=== PATIENT | male | born 1990 | race Two or more races ===

== ENCOUNTER 2024-11-16 23:17 | Emergency (ER) | payer MEDICAID, OTHER ==
[~2024-11-16] VITALS: Ht 160 cm; Wt 98.1 kg
[2024-11-16 23:57] LABS: Hematocrit 44.5 % (41.0-53.0); Hemoglobin 15.2 g/dL (13.5-17.5); Mean Corpuscular Hemoglobin 31.1 pg (28.0-32.0); Mean Corpuscular Volume 91.1 fL (80.0-100.0); Nucleated Red Blood Cells % 0.3 %
[2024-11-17 00:07] LABS: Chloride 107 mmol/L (98-107); Potassium 3.8 mmol/L (3.5-5.1); Sodium 140 mmol/L (136-145)
[2024-11-17 00:08] LABS: Anion Gap 11 (5-15); Carbon Dioxide 22 mmol/L (20-31)
[2024-11-17 00:09] LABS: Calcium 8.9 mg/dL (8.7-10.4)
[2024-11-17 00:13] LABS: Glucose 105 mg/dL (74-106)
[2024-11-17 00:14] LABS: BUN/Creatinine Ratio 15.5 (10.0-20.0); Blood Urea Nitrogen 17 mg/dL (9-23)
--- NOTE | 2024-11-17 00:35 | ED.PDOC ---
HPI Comments This is a 34-year-old male, with a past medical history of HTN, high lipids, chronic back pain, and asthma, who presents to the ED with a chief complaint of substernal chest pain with associated back pain as of months ago. Patient states the chest pain is spontaneous, intermittent, a "shooting" pain, and radiating to the right side of his chest. Patient additionally states chest pain is exacerbated when walking fast. Patient reports recent exposure to illness. Patient states he was admitted before for the same complaint. Patient has no further complaints at this time and otherwise denies N/V/D, fever, chills, cough, SOB, or dizziness. REVIEW OF SYSTEMS: No fever, no chills, or fatigue HEENT: No sore throat, no earache, no congestion, no neck pain. Cardiac: (+) chest pain. No palpitations. Lungs: No shortness of breath, no cough. GI: No nausea, no vomiting, no diarrhea, no constipation, no abdominal pain : No dysuria, frequency, or urgency. No hematuria. Musculoskeletal: (+) Back Pain. No joint pain , no joint swelling, no extremity edema. Skin: No rash, no itching. Neuro: No headache, no dizziness, no weakness EXAM: General: Awake, alert and oriented. No acute distress. Skin: Skin in warm, dry and intact. Appropriate color for ethnicity. HEENT: The head is normocephalic and atraumatic. Conjunctivae are clear without exudates or hemorrhage. Sclera is non-icteric. EOM are intact. No signs of nystagmus. Eyelids are normal in appearance without swelling or lesions. Oral mucosa is pink and moist Neck: The neck is supple with normal range of motion. No JVD. Cardiac: Heart rate and rhythm are normal. No murmurs, gallops, or rubs are auscultated. Respiratory: No signs of respiratory distress. Lung sounds are clear in all lobes bilaterally without rales, rhonchi, or wheezes. Abdominal: Abdomen is soft, non-tender without distention. Bowel sounds are present and normoactive in all four quadrants. Extremities: Upper and lower extremities are atraumatic in appearance without deformity or edema. Neurological: The patient is awake, alert and oriented to person, place, and time with normal speech. Speech is clear. There is no facial asymmetry. Psychiatric: Appropriate mood and affect. Good judgement and insight. Chief Complaint: Chest Pain Time Seen by MD: 00:05 Primary Care Provider: Clara Awad Notes: Medications, Allergies Allergies: Coded Allergies: Cyclobenzaprine (Verified Allergy, Unknown, 11/16/24) Ibuprofen (Verified Allergy, Unknown, 11/16/24) Ketorolac Tromethamine (Verified Allergy, Unknown, 11/16/24) Tramadol (Verified Allergy, Unknown, 11/16/24) Information Source: Patient Mode of Arrival: Ambulatory Severity: Moderate Timing: Months Duration: Since onset Location: Substernal Radiation: Other (Radiation to R side ) Onset: At Rest, With Light Exertion, With Heavy Exertion Associated Signs and Symptoms: Other (Chest Pain, Back Pain ) Past Medical History PAST MEDICAL HISTORY: Asthma, High Lipids, HTN Past Medical History (Other): Chronic Back Pain Surgical History: Denies all surgeries Family History Family History: Reviewed,noncontributory to illness Social History Smoker: Cigarettes, Less Than 1 Pack/Day Alcohol: Occasionally Drugs: Marijuana Lives In: Home EKG EKG : Pulse Rate (adult): 110 [place]: Normal Cardiac Rhythm: ST Block: None Hypertrophy: LAE ST: Normal Was a procedure done? Was a procedure done?: No CP Differential Dx Differential Diagnosis: A-fib, Anxiety / Panic Attack Differential Diagnosis: HTN Essential Differential Diagnosis: Chest Wall Pain, Gastritis X-Ray, Labs, Meds, VS Vital Signs Date Time Temp Pulse Resp B/P (MAP) Pulse Ox O2 Delivery O2 Flow Rate FiO2 11/17/24 04:23 92 16 93 Room Air 11/17/24 04:23 98.0 92 16 111/65 (80) 93 98.0 11/17/24 00:38 110 11/16/24 23:22 110 11/16/24 23:19 98.1 114 16 92/61 94 98.1 Lab Test 11/17/24 02:39 11/17/24 00:48 11/16/24 23:30 Range/Units Troponin I High Sensitivity < 3 L < 3 L < 3 L </=54 ng/L White Blood Count 6.5 4.4-10.8 10^3/uL Red Blood Count 4.89 4.5-5.90 10^6/uL Hemoglobin 15.2 13.5-17.5 g/dL Hematocrit 44.5 41.0-53.0 % Mean Corpuscular Volume 91.1 80.0-100.0 fL Mean Corpuscular Hemoglobin 31.1 28.0-32.0 pg Mean Corpuscular Hemoglobin Concent 34.2 32.0-36.0 g/dL Red Cell Distribution Width 12.9 11.8-14.3 % Platelet Count 214 140-450 10^3/uL Mean Platelet Volume 8.7 6.9-10.8 fL Neutrophils (%) (Auto) 28.8 L 37.0-80.0 % Lymphocytes (%) (Auto) 57.4 H 10.0-50.0 % Monocytes (%) (Auto) 8.9 0.0-12.0 % Eosinophils (%) (Auto) 4.2 0.0-7.0 % Basophils (%) (Auto) 0.7 0.0-2.0 % Neutrophils # (Auto) 1.9 1.6-8.6 10 ^3/uL Lymphocytes # (Auto) 3.7 0.4-5.4 10 ^3/uL Monocytes # (Auto) 0.6 0-1.3 10 ^3/uL Eosinophils # (Auto) 0.3 0-0.8 10 ^3/uL Basophils # (Auto) 0 0-0.2 10 ^3/uL Nucleated Red Blood Cells 0.3 % Sodium Level 140 136-145 mmol/L Potassium Level 3.8 3.5-5.1 mmol/L Chloride Level 107 98-107 mmol/L Carbon Dioxide Level 22 20-31 mmol/L Anion Gap 11 5-15 Blood Urea Nitrogen 17 9-23 mg/dL Creatinine 1.10 0.700-1.30 mg/dL Glomerular Filtration Rate Calc 90 >90 mL/min BUN/Creatinine Ratio 15.5 10.0-20.0 Serum Glucose 105 74-106 mg/dL Calcium Level 8.9 8.7-10.4 mg/dL B-Type Natriuretic Peptide 0.87 0-100 pg/mL [facility] [id number] [place] [id number] Ph: [phone] DIAGNOSTIC IMAGING Diagnostic Imaging Report : [id number] Signed PATIENT: SHELLY RAMIRES ACCT: [id number] UNIT: [id number] : 1990 LOC: ER ROOM / BED: / AGE / SEX: 34 / M ADM STATUS: REG ER SERVICE [id number] ORDERING PHYSICIAN: JUWAN LEW MD PROCEDURE(s): CXR1 - CHEST XRAY 1 VIEW REASON: cp ORDER NUMBER(s): [id number], ACCESSION NUMBER(s): [id number] EXAM: XY CHEST XRAY 1 VIEW CLINICAL HISTORY: cp TECHNIQUE: Single AP view of the chest WID: COMPARISON: None FINDINGS: Lines and tubes: None Chest: The heart size and pulmonary vasculature is within normal limits. No pleural effusion, pneumothorax, or consolidation. The osseous structures are grossly intact. IMPRESSION: No acute cardiopulmonary abnormality. X-Ray, Labs, Meds, VS Comment Chest x-ray independent interpretation:-no acute disease Time of 1ST Reevaluation: 01:00 Reevaluation 1ST: Unchanged Patient Education/Counseling: Need For Follow Up Family Education/Counseling: No Family Present SEPSIS Sepsis Screen Date sepsis recognized/suspect: Nov 16, 2024 Time Sepsis recognized/suspect: 2328 Recent Procedure: No On Antibiotic Therapy: No Respiratory Rate >20: No Heart Rate >90: No Temp<36 C (96.8 F) or >38.3 C: No SBP <90 or MAP <65 mmHG: No New Acute Mental Status Change: No Is the patient on CPAP, BIPAP,: No Physician Orders Electrocardigram (11/17/24 00:26) Electrocardigram (11/17/24 02:26) Urinalysis (11/16/24 23:29) Chest Xray 1 View (11/16/24 23:36) Vital Signs Date Time Temp Pulse Resp B/P (MAP) Pulse Ox O2 Delivery O2 Flow Rate FiO2 11/17/24 04:23 92 16 93 Room Air 11/17/24 04:23 98.0 92 16 111/65 (80) 93 98.0 11/17/24 00:38 110 11/16/24 23:22 110 11/16/24 23:19 98.1 114 16 92/61 94 98.1 Laboratory Tests Test 11/16/24 23:30 White Blood Count 6.5 10^3/uL (4.4-10.8) Departure 1 Departure Time of Disposition: 01:34 Impression: Primary Impression: Chest pain Disposition: 01 HOME / SELF CARE / HOMELESS Condition: Stable Additional Instructions: ED DISCHARGE INSTRUCTIONS Instructions: Please read all instructions provided in this packet carefully. Although you have been discharged from the Emergency Department, this does not mean that you have a "clean bill of health". No definitive diagnosis for your symptoms has been made today. It is possible that you are in the process of developing a serious illness. This is why you must return to the ED without fail if any new or worsening symptoms (especially if your symptoms include chest pain, trouble breathing, abdominal pain, fever, headache, confusion, trouble seeing, or trouble walking) It is also very important that you see a primary care provider (PCP) within the next 1-3 days to follow up. If you are unable to get an appointment, return to the ED for re-evaluation. CHEST PAIN EDUCATION There are many things that can cause chest pain. Some are not serious and will get better on their own in a few days. But some kinds of chest pain need more testing and treatment. Your doctor may have recommended a follow-up visit in the next few days. If you are not getting better, you may need more tests or treatment. Even though your doctor has released you, you still need to watch for any problems. The doctor carefully checked you, but sometimes problems can develop later. If you have new symptoms or if your symptoms do not get better, get medical care right away. If you have worse or different chest pain or pressure that lasts more than 5 minutes or you passed out (lost consciousness), call 911 or seek other emergency help right away. A medical visit is only one step in your treatment. Even if you feel better, you still need to do what your doctor recommends, such as going to all suggested follow-up appointments and taking medicines exactly as directed. This will help you recover and help prevent future problems. How can you care for yourself at home? Rest until you feel better. Take your medicine exactly as prescribed. Call your doctor if you think you are having a problem with your medicine. Do not drive after taking a prescription pain medicine. When should you call for help? Call 911 if: You passed out (lost consciousness). You have severe difficulty breathing. You have symptoms of a heart attack. These may include: Chest pain or pressure, or a strange feeling in your chest. Sweating. Shortness of breath. Nausea or vomiting. Pain, pressure, or a strange feeling in your back, neck, jaw, or upper belly or in one or both shoulders or arms. Lightheadedness or sudden weakness. A fast or irregular heartbeat. After you call 911, the sensor operator may tell you to chew 1 adult-strength or 2 to 4 low-dose aspirin. Wait for an ambulance. Do not try to drive yourself. Call your doctor now or seek immediate medical care if: You have any trouble breathing. You have new or different chest pain. You are dizzy or lightheaded, or you feel like you may faint. Watch closely for changes in your health, and be sure to contact your doctor if you do not get better as expected. Current as of: November 06, 2023 Author: [employer] Staff? Comments MDM: 34-year-old male with 2 days of chest pain. EKG negative for signs of ischemia. High sensitivity troponin negative. CXR shows no acute process. Presentation not suggestive of acute coronary syndrome, pulmonary embolism or aortic dissection. Patient improved at time of discharge. Patient has not been hypoxic, in respiratory distress or dyspneic during the ED observation. Patient able to ambulate without difficulty. Patient felt stable for discharge to follow up with PCP promptly. Patient advised to return to the ED with any new, worsening or concerning symptoms or inability to follow up with PCP. -------- I reviewed the following notes from the pt's past medical encounters: N/A The following tests were ordered, and results were reviewed by me: (See diagnostic results section) The following test were independently interpreted by me: EKG, chest x-ray Additional information was gathered from interviewing the following independent historians: N/A I reviewed and agreed with the following test results read by other providers: Chest x-ray I discussed treatments and results with patient Decision regarding hospitalization or escalation of hospital level of care: Risks and benefits of admission for further treatment of patient's condition was considered however due to patient's stable condition patient will be discharged to follow up closely or return to care for worsening of condition or inability to follow up. Critical Care Note Critical Care Time?: No Stability Stability form required: No Heart Score Heart Score: Heart Score Response (Comments) Value History Moderate Suspicious 1 EKG Normal 0 Age <45 0 Risk Factors No known risk factors 0 Troponin N/A 0 Total 1 I personally scribed for JUWAN LEW MD ([email or web address]) on 11/17/24 at 00:35. Electronically submitted by Maggie Rowe (Otterology). I personally scribed for JUWAN LEW MD ([email or web address]) on 11/17/24 at 00:38. Electronically submitted by Maggie Rowe (Otterology). I personally scribed for JUWAN LEW MD ([email or web address]) on 11/17/24 at 01:18. Electronically submitted by Maggie Rowe (Otterology). JUWAN LEW MD Nov 17, 2024 00:35
--- NOTE | 2024-11-17 00:50 | DVH ---
EXAM: XY CHEST XRAY 1 VIEW CLINICAL HISTORY: cp TECHNIQUE: Single AP view of the chest WID: COMPARISON: None FINDINGS: Lines and tubes: None Chest: The heart size and pulmonary vasculature is within normal limits. No pleural effusion, pneumothorax, or consolidation. The osseous structures are grossly intact. IMPRESSION: No acute cardiopulmonary abnormality.
[2024-11-17 04:23] VITALS: BP 111/65; PULSE 92; RESP 16; TEMP 98; O2SAT 93
--- NOTE | 2024-11-17 06:49 | ECG ---
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
== END 2024-11-17 04:23 | disposition home or self-care (01) ==
LOC: ER 23:17
DX: R07.89 Other chest pain (principal); J45.909 Unspecified asthma, uncomplicated; I10 Essential (primary) hypertension; F17.210 Nicotine dependence, cigarettes, uncomplicated; Z88.6 Allergy status to analgesic agent; Z88.5 Allergy status to narcotic agent; Z79.899 Other long term (current) drug therapy
CPT/HCPCS: 36415; 71045; 80048; 83880; 84484; 85025; 93005

== ENCOUNTER 2024-11-24 00:47 | Emergency (ER) | payer MEDICAID ==
[~2024-11-24] VITALS: Ht 157.5 cm; Wt 76.9 kg
--- NOTE | 2024-11-24 01:08 | ECG ---
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
--- NOTE | 2024-11-24 01:49 | ED.PDOC ---
HPI Comments This is a 34-year-old male, with a past medical history of HTN, high lipids, chronic back pain, bipolar disorder, and asthma, who presents to the ED with a chief complaint of substernal chest pain. Patient states he was admitted before for the same complaint. Patient has no further complaints at this time and otherwise denies N/V/D, fever, chills, cough, SOB, or dizziness. Chief Complaint: Chest Pain Time Seen by MD: 01:00 Reviewed Notes: Nurses Notes, Medications, Allergies Allergies: Coded Allergies: Cyclobenzaprine (Verified Allergy, Unknown, 11/16/24) Ibuprofen (Verified Allergy, Unknown, 11/16/24) Ketorolac Tromethamine (Verified Allergy, Unknown, 11/16/24) Tramadol (Verified Allergy, Unknown, 11/16/24) Information Source: Patient Mode of Arrival: Ambulatory Severity: Moderate Timing: Hours Duration: Since onset Prehospital treatment: None Location: Substernal Radiation: No Radiation Past Medical History PAST MEDICAL HISTORY: Asthma, High Lipids, HTN Past Medical History (Other): chronic back pain bipolar disorder Surgical History: Denies all surgeries Family History Family History: Unknown Social History Smoker: Non-Smoker Alcohol: Denies ETOH Use Drugs: Denies Drug Use Lives In: Home All Other Systems: Reviewed and Negative (Comprehensive systems review obtained and negative except for what is stated in the HPI.) Physical Exam General Appearance: No Apparent Distress, Obese HEENT: Normal ENT Inspection, Pharynx Normal, TMs Normal Neck: Full Range of Motion, Non-Tender, Normal, Normal Inspection Respiratory: Chest Non-Tender, Lungs Clear, No Accessory Muscle Use, No Respiratory Distress, Normal Breath Sounds Cardiovascular: No Edema, No JVD, No Murmur, No Gallop, Normal Peripheral Pulses, Regular Rate/Rhythm Breast Exam: Deferred Gastrointestinal: No Organomegaly, Non Tender, No Pulsatile Mass, Normal Bowel Sounds, Soft Genitalia: Deferred Pelvic: Deferred Rectal: Deferred Extremities: No calf tenderness, Normal capillary refill, Normal inspection, Normal range of motion, Non-tender, No pedal edema Musculoskeletal : Apperance: Normal Neurologic: Alert, 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 Was a procedure done?: No CP Differential Dx Differential Diagnosis: N/A Differential Diagnosis: N/A Differential Diagnosis: Angina, Chest Wall Pain, Cholelithiasis, Costochondritis, Esophageal reflux/spasm, Gastritis, Myocardial Infarction, Pericarditis, Pneumonia, Pulmonary Embolus X-Ray, Labs, Meds, VS Vital Signs Date Time Temp Pulse Resp B/P (MAP) Pulse Ox O2 Delivery O2 Flow Rate FiO2 11/24/24 04:02 97.9 100 18 117/72 (87) 95 97.9 11/24/24 04:02 100 18 95 Room Air 11/24/24 01:49 97 11/24/24 00:55 97 11/24/24 00:48 97.9 99 18 131/97 98 97.9 Lab Test 11/24/24 02:00 11/24/24 01:06 Range/Units Troponin I High Sensitivity 4 5 </=54 ng/L White Blood Count 6.2 4.4-10.8 10^3/uL Red Blood Count 4.68 4.5-5.90 10^6/uL Hemoglobin 14.7 13.5-17.5 g/dL Hematocrit 42.9 41.0-53.0 % Mean Corpuscular Volume 91.8 80.0-100.0 fL Mean Corpuscular Hemoglobin 31.4 28.0-32.0 pg Mean Corpuscular Hemoglobin Concent 34.2 32.0-36.0 g/dL Red Cell Distribution Width 12.9 11.8-14.3 % Platelet Count 185 140-450 10^3/uL Mean Platelet Volume 8.7 6.9-10.8 fL Neutrophils (%) (Auto) 35.8 L 37.0-80.0 % Lymphocytes (%) (Auto) 46.4 10.0-50.0 % Monocytes (%) (Auto) 12.9 H 0.0-12.0 % Eosinophils (%) (Auto) 4.0 0.0-7.0 % Basophils (%) (Auto) 0.9 0.0-2.0 % Neutrophils # (Auto) 2.2 1.6-8.6 10 ^3/uL Lymphocytes # (Auto) 2.9 0.4-5.4 10 ^3/uL Monocytes # (Auto) 0.8 0-1.3 10 ^3/uL Eosinophils # (Auto) 0.2 0-0.8 10 ^3/uL Basophils # (Auto) 0.1 0-0.2 10 ^3/uL Nucleated Red Blood Cells 0.1 % Sodium Level 139 136-145 mmol/L Potassium Level 3.9 3.5-5.1 mmol/L Chloride Level 104 98-107 mmol/L Carbon Dioxide Level 25 20-31 mmol/L Anion Gap 10 5-15 Blood Urea Nitrogen 16 9-23 mg/dL Creatinine 1.03 0.700-1.30 mg/dL Glomerular Filtration Rate Calc 97 >90 mL/min BUN/Creatinine Ratio 15.5 10.0-20.0 Serum Glucose 105 74-106 mg/dL Calcium Level 9.3 8.7-10.4 mg/dL [place] [address] Ph: [phone] DIAGNOSTIC IMAGING Diagnostic Imaging Report : [id number] Signed PATIENT: SHELLY RAMIRES ACCT: [id number] UNIT: [id number] : 1990 LOC: ER ROOM / BED: / AGE / SEX: 34 / M ADM STATUS: REG ER SERVICE 0 ORDERING PHYSICIAN: MARIANA LEMON MD PROCEDURE(s): CXR1 - CHEST XRAY 1 VIEW REASON: chest pain ORDER NUMBER(s): [id number], ACCESSION NUMBER(s): [id number] CHEST RADIOGRAPH Indication: chest pain Technique: Single frontal view of the chest was obtained Comparison: XY CHEST XRAY 1 VIEW on DOS: 11/17/24 FINDINGS: Lines and Tubes: None Lungs: Question left lower lobe opacity may reflect atelectasis versus early stage of pneumonia. Pleura: No effusion. No pneumothorax. Cardiomediastinal contours: Unremarkable Bones: No acute osseous abnormality. IMPRESSION: 1. Question left lower lobe opacity may reflect atelectasis versus early stage of pneumonia. ATED BY: RONNIE THOMAS MD DICTATED DATE/TIME: 11/24/24154 SIGNED BY: RONNIE THOMAS MD SIGNED DATE/TIME: 11/24/24154 CC: Time of 1ST Reevaluation: 01:30 Reevaluation 1ST: Unchanged Patient Education/Counseling: Diagnosis, Treatment, Need For Follow Up Family Education/Counseling: No Family Present SEPSIS Sepsis Screen Date sepsis recognized/suspect: Nov 24, 2024 Time Sepsis recognized/suspect: 0048 Recent Procedure: No On Antibiotic Therapy: No Respiratory Rate >20: No Heart Rate >90: No Temp<36 C (96.8 F) or >38.3 C: No SBP <90 or MAP <65 mmHG: No New Acute Mental Status Change: No Is the patient on CPAP, BIPAP,: No Physician Orders Urinalysis (11/24/24 01:06) Chest Xray 1 View (11/24/24 01:11) Vital Signs Date Time Temp Pulse Resp B/P (MAP) Pulse Ox O2 Delivery O2 Flow Rate FiO2 11/24/24 04:02 97.9 100 18 117/72 (87) 95 97.9 11/24/24 04:02 100 18 95 Room Air 11/24/24 01:49 97 11/24/24 00:55 97 11/24/24 00:48 97.9 99 18 131/97 98 97.9 Laboratory Tests Test 11/24/24 01:06 White Blood Count 6.2 10^3/uL (4.4-10.8) Departure 1 Departure Time of Disposition: 03:30 Impression: Primary Impression: Atypical chest pain Disposition: 01 HOME / SELF CARE / HOMELESS Condition: Stable Discharged With: Self Critical Care Note Critical Care Time?: No Stability Stability form required: No Heart Score Heart Score: Heart Score Response (Comments) Value History Slightly Suspicious 0 EKG Normal 0 Age <45 0 Risk Factors 1 or 2 risk factors 1 Troponin Normal limit 0 Total 1 I personally scribed for MARIANA LEMON MD ([email or web address]) on 11/24/24 at 01:49. Electronically submitted by Rashawn Garcia ([email or web address]). I personally scribed for MARIANA LEMON MD ([email or web address]) on 11/24/24 at 02:16. Electronically submitted by Rashawn Garcia ([email or web address]). MARIANA LEMON MD Nov 24, 2024 01:49
[2024-11-24 01:51] LABS: Hematocrit 42.9 % (41.0-53.0); Hemoglobin 14.7 g/dL (13.5-17.5); Mean Corpuscular Hemoglobin 31.4 pg (28.0-32.0); Mean Corpuscular Volume 91.8 fL (80.0-100.0); Nucleated Red Blood Cells % 0.1 %
[2024-11-24 01:52] LABS: Chloride 104 mmol/L (98-107); Potassium 3.9 mmol/L (3.5-5.1); Sodium 139 mmol/L (136-145)
[2024-11-24 01:53] LABS: Anion Gap 10 (5-15); Calcium 9.3 mg/dL (8.7-10.4); Carbon Dioxide 25 mmol/L (20-31)
--- NOTE | 2024-11-24 01:57 | DVH ---
CHEST RADIOGRAPH Indication: chest pain Technique: Single frontal view of the chest was obtained Comparison: XY CHEST XRAY 1 VIEW on DOS: 11/17/24 FINDINGS: Lines and Tubes: None Lungs: Question left lower lobe opacity may reflect atelectasis versus early stage of pneumonia. Pleura: No effusion. No pneumothorax. Cardiomediastinal contours: Unremarkable Bones: No acute osseous abnormality. IMPRESSION: 1. Question left lower lobe opacity may reflect atelectasis versus early stage of pneumonia.
[2024-11-24 01:58] LABS: BUN/Creatinine Ratio 15.5 (10.0-20.0); Blood Urea Nitrogen 16 mg/dL (9-23); Glucose 105 mg/dL (74-106)
[2024-11-24 04:02] VITALS: BP 117/72; PULSE 100; RESP 18; TEMP 97.9; O2SAT 95
== END 2024-11-24 04:03 | disposition home or self-care (01) ==
LOC: ER 00:47
DX: R07.89 Other chest pain (principal); I10 Essential (primary) hypertension; J45.909 Unspecified asthma, uncomplicated; Z88.6 Allergy status to analgesic agent; Z88.5 Allergy status to narcotic agent
CPT/HCPCS: 36415; 71045; 80048; 84484; 85025; 93005

== ENCOUNTER 2024-12-24 21:16 | Emergency (ER) | payer MEDICAID ==
[~2024-12-24] VITALS: Ht 160 cm; Wt 77.3 kg
--- NOTE | 2024-12-24 22:39 | ED.PDOC ---
History of Present Illness HPI Comments 34-year-old male who came to ER for hip pain. Patient discharged your last December 20 and was diagnosed with 1. Chest pain, 2. Polysubstance use disorder including alcohol/marijuana/tobacco, 3. Hypertensive heart disease, 4. Bipolar disorder with depression; no suicidal ideation/plan, 5. Dyslipidemia, 6. Overweight, 7. Homelessness. Patient's claims ever since he got discharged, he has been having lower back pains and bilateral hip pain causing him difficulty ambulating. Patient is a very poor informant REVIEW OF SYSTEMS: General: No fever, no chills, or fatigue HEENT: No sore throat, no earache, no congestion, no neck pain. Cardiac: No chest pain. No palpitations. Lungs: No shortness of breath, no cough. GI: No nausea, no vomiting, no diarrhea, no constipation, no abdominal pain : No dysuria, frequency, or urgency. No hematuria. Musculoskeletal: No joint pain , no joint swelling, no extremity edema. (+) bilateral hip pain Skin: No rash, no itching. Neuro: No headache, no dizziness, no weakness PHYSICAL EXAM: General: Awake, alert and oriented. No acute distress. Skin: Skin in warm, dry and intact without rashes or lesions. HEENT: The head is normocephalic and atraumatic. Conjunctivae are clear without exudates or hemorrhage. Sclera is non-icteric. Neck: Normal range of motion. No JVD. Cardiac: Regular rate Respiratory: No signs of respiratory distress. No Stridor. Extremities: Bilateral hip and pelvis tenderness Neurological: The patient is awake, alert and oriented to person, place, and time with normal speech. Speech is clear. There is no facial asymmetry. Patient is able to go from sitting to standing without difficulty. Psychiatric: Appropriate mood and affect. Good judgement and insight. Chief Complaint: Lower Extremity Time Seen by MD: 22:39 Reviewed Notes: Nurses Notes Allergies: Coded Allergies: Cyclobenzaprine (Verified Allergy, Unknown, 11/16/24) Ibuprofen (Verified Allergy, Unknown, 11/16/24) Ketorolac Tromethamine (Verified Allergy, Unknown, 11/16/24) Tramadol (Verified Allergy, Unknown, 11/16/24) Home Meds Active Scripts Acetaminophen (Acetaminophen Er) 650 Mg Tab, 650 MG PO TIDPRN PRN, #15 TAB Prov:JUWAN LEW MD 12/25/24 Information Source: Patient Mode of Arrival: Ambulatory Severity: Moderate Timing: Hours Duration: Since onset Past Medical History PAST MEDICAL HISTORY: Asthma, High Lipids, HTN Past Medical History (Other): Bipolar disorder Surgical History: Denies all surgeries Family History Family History: Reviewed,noncontributory to illness Social History Smoker: Non-Smoker Alcohol: Denies ETOH Use Drugs: Denies Drug Use Lives In: Homeless Was a procedure done? Was a procedure done?: No Differential Dx Considerations may include: Musculoskeletal pain, lumbosacral strain, hip pain X-Ray, Labs, Meds, VS Vital Signs Date Time Temp Pulse Resp B/P (MAP) Pulse Ox O2 Delivery O2 Flow Rate FiO2 12/25/24 01:06 98.6 12/25/24 00:58 100 95 Room Air* 0 21 12/25/24 00:58 98.6 100 18 116/75 (89) 95 98.6 12/24/24 21:16 98.9 111 16 117/66 95 98.9 Current Medications Medications (Trade) Dose Ordered Sig/Astrid Route Start Time Stop Time Status Last Admin Acetaminophen (Tylenol Tablet Or Capsule) 1,000 mg ONCE ONCE PO 12/25/24 00:30 12/25/24 01:21 DC 12/25/24 01:06 Lidocaine (Lidoderm 5% Topical Patch) 1 patch ONCE ONCE TOP 12/25/24 00:30 12/25/24 00:36 DC 12/25/24 01:06 Acetaminophen/ Hydrocodone Bitart ([place] 5/325MG Tab) 1 tab ONCE ONCE PO 12/25/24 01:30 12/25/24 01:29 DC 12/25/24 01:26 Time of 1ST Reevaluation: 22:35 Reevaluation 1ST: Unchanged Patient Education/Counseling: Need For Follow Up Family Education/Counseling: No Family Present SEPSIS Sepsis Screen Date sepsis recognized/suspect: Dec 24, 2024 Time Sepsis recognized/suspect: 2115 Recent Procedure: No On Antibiotic Therapy: Yes Respiratory Rate >20: No Heart Rate >90: Yes Temp<36 C (96.8 F) or >38.3 C: No SBP <90 or MAP <65 mmHG: No New Acute Mental Status Change: No Is the patient on CPAP, BIPAP,: No Physician Orders Pelvis Ap (9/18/25 22:36) Vital Signs Date Time Temp Pulse Resp B/P (MAP) Pulse Ox O2 Delivery O2 Flow Rate FiO2 12/25/24 01:06 98.6 12/25/24 00:58 100 95 Room Air* 0 21 12/25/24 00:58 98.6 100 18 116/75 (89) 95 98.6 12/24/24 21:16 98.9 111 16 117/66 95 98.9 Medications Medications Dose Ordered Sig/Asrtid Route Start Time Stop Time Status Last Admin Dose Admin Acetaminophen 1,000 mg ONCE ONCE PO 12/25/24 00:30 12/25/24 01:21 DC 12/25/24 01:06 Acetaminophen/ Hydrocodone Bitart 1 tab ONCE ONCE PO 12/25/24 01:30 12/25/24 01:29 DC 12/25/24 01:26 Lidocaine 1 patch ONCE ONCE TOP 12/25/24 00:30 12/25/24 00:36 DC 12/25/24 01:06 Departure 1 Departure Time of Disposition: 00:37 Impression: Primary Impression: Bilateral hip pain Additional Impression: Chronic pain Disposition: HOME / SELF CARE / HOMELESS Condition: Stable Additional Instructions: ED DISCHARGE INSTRUCTIONS Instructions: Please read all instructions provided in this packet carefully. Although you have been discharged from the Emergency Department, this does not mean that you have a "clean bill of health". No definitive diagnosis for your symptoms has been made today. It is possible that you are in the process of developing a serious illness. This is why you must return to the ED without fail if any new or worsening symptoms (especially if your symptoms include chest pain, trouble breathing, abdominal pain, fever, headache, confusion, trouble seeing, or trouble walking) It is also very important that you see a primary care provider (PCP) within the next 3-5 days to follow up. You may need a referral to a hand touch up painter for treatment of chronic pain. If you are unable to get an appointment, return to the ED for re-evaluation. e-Prescriptions Acetaminophen (Acetaminophen Er) 650 Mg Tab 650 MG PO TIDPRN PRN, #15 TAB Prov: JUWAN LEW MD 12/25/24 Comments MDM: Patient well-appearing, nontoxic. Advised prompt follow-up with PCP, return to the ED with any new, worsening or concerning symptoms. I reviewed the following notes from the pt's past medical encounters: N/A The following tests were ordered, and results were reviewed by me: (See diagnostic results section) The following test were independently interpreted by me: N/A Additional information was gathered from interviewing the following independent historians: N/A I reviewed and agreed with the following test results read by other providers: N/A I discussed treatments and results with patient Decision regarding hospitalization or escalation of hospital level of care: Risks and benefits of admission for further treatment of patient's condition was considered however due to patient's stable condition patient will be discharged to follow up closely or return to care for worsening of condition or inability to follow up. Critical Care Note Critical Care Time?: No Stability Stability form required: No Heart Score Heart Score: Heart Score Response (Comments) Value History N/A 0 EKG N/A 0 Age N/A 0 Risk Factors N/A 0 Troponin N/A 0 Total 0 I personally scribed for JUWAN LEW MD ([email or web address]) on 12/24/24 at 22:39. Electronically submitted by Houston Thompson ([email or web address]). JUWAN LEW MD Dec 24, 2024 22:39
--- NOTE | 2024-12-24 23:13 | DVH ---
CLINICAL INDICATION: b/l hip and pelvic pain TECHNIQUE: 1-view XY PELVIS AP Comparison: None FINDINGS: No acute fracture or dislocation. No significant degenerative change. Unremarkable soft tissues and p elvic contents. IMPRESSION: 1. No acute osseous finding of the pelvis.
[2024-12-25] MEDS ORDERED: ACET650T12 PO (00:41)
[2024-12-25 00:58] VITALS: BP 116/75; PULSE 100; RESP 18; O2SAT 95
[2024-12-25 01:06] VITALS: TEMP 98.6
[2024-12-25] MEDS: ACETAMINOPHEN 500 MG TAB or CAP PO ONE (01:06)
[2024-12-25] MEDS: LIDOCAINE 5% TOPICAL PATCH TOP ONE (01:06)
[2024-12-25] MEDS: HYDROcodone-ACET 5/325MG TAB PO ONE (01:26)
== END 2024-12-25 01:28 | disposition home or self-care (01) ==
LOC: ER 21:16
DX: G89.29 Other chronic pain (principal); M25.551 Pain in right hip; M25.552 Pain in left hip; M54.50 Low back pain, unspecified; R26.2 Difficulty in walking, not elsewhere classified; E78.5 Hyperlipidemia, unspecified; F19.10 Other psychoactive substance abuse, uncomplicated; I10 Essential (primary) hypertension; F31.9 Bipolar disorder, unspecified; J45.909 Unspecified asthma, uncomplicated; Z88.5 Allergy status to narcotic agent; Z88.6 Allergy status to analgesic agent
CPT/HCPCS: 72170

== ENCOUNTER 2025-01-05 22:28 | Emergency (ER) | payer MEDICAID ==
[~2025-01-05] VITALS: Ht 165.1 cm; Wt 75.5 kg
[~2025-01-05 22:28] MED LIST: ACET650T12 PO
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
--- NOTE | 2025-01-05 23:35 | DVH ---
EXAM: XY LUMBAR SPINE 3 VIEW HISTORY: para spinal and spinal tenderness COMPARISON: CT SPINE LUMBAR WITHOUT on DOS: 01/02/25, CT SPINE LUMBAR WITHOUT on DOS: 12/25/24, CT SPIN E LUMBAR WITHOUT on DOS: 12/23/24 TECHNIQUE: AP and lateral views of the lumbar spine and spot lateral of the lumbosacral junction were performed. FINDINGS/IMPRESSION: No acute displaced fracture. The alignment is maintained. If clinical symptoms persist, CT or MRI m ay be beneficial in further evaluation.
[2025-01-05] MEDS: MORPHINE SULFATE INJ 2 MG/ml SYRG IM ONE (23:48)
[2025-01-05] MEDS: BACLOFEN 10 MG TAB PO ONE (23:50)
[2025-01-05] MEDS: MORPHINE SULFATE 4 MG/ML SYR/VIAL ONE (23:52)
[2025-01-06] MEDS ORDERED: BACL10TA PO (01:26)
[2025-01-06 01:42] VITALS: BP 145/106; PULSE 91; RESP 20; TEMP 98.6; O2SAT 98
== END 2025-01-06 02:40 | disposition home or self-care (01) ==
LOC: ER 22:28
DX: S33.5XXA Sprain of ligaments of lumbar spine, initial encounter (principal); I10 Essential (primary) hypertension; J45.909 Unspecified asthma, uncomplicated; Z88.6 Allergy status to analgesic agent; Z88.5 Allergy status to narcotic agent; Z79.899 Other long term (current) drug therapy; Z59.00 Homelessness unspecified; V89.2XXA Person injured in unspecified motor-vehicle accident, traffic, initial encounter; Y93.89 Activity, other specified; Y92.410 Unspecified street and highway as the place of occurrence of the external cause; Y99.8 Other external cause status
CPT/HCPCS: 72100; 96372; 99283; J2270

== ENCOUNTER 2025-01-12 23:52 | Emergency (ER) | payer MEDICAID ==
[~2025-01-12] VITALS: Ht 152.4 cm; Wt 75.1 kg
[~2025-01-12 23:52] MED LIST changes: +BACL10TA PO
[2025-01-13 00:09] VITALS: BP 137/91; PULSE 90; TEMP 98.3
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
[2025-01-13 00:51] LABS: Hematocrit 43.8 % (41.0-53.0); Hemoglobin 14.9 g/dL (13.5-17.5); Mean Corpuscular Hemoglobin 31.2 pg (28.0-32.0); Mean Corpuscular Volume 91.8 fL (80.0-100.0); Nucleated Red Blood Cells % 0.0 %
[2025-01-13] MEDS: ALBUTEROL SULF 2.5 MG/0.5ML(0.5%) NEB SOLN NEB ONE (00:55)
[2025-01-13 00:57] VITALS: RESP 20
--- NOTE | 2025-01-13 00:58 | DVH ---
CHEST RADIOGRAPH Indication: sob Technique: 1 view Comparison: XR CHEST 1 VIEW on DOS: 12/30/24, XR CHEST 1 VIEW on DOS: 12/25/24, XY CHEST PORTABLE on DO S: 12/15/24, XR CHEST 1 VIEW on DOS: 12/11/24, XR CHEST 1 VIEW on DOS: 11/26/24 FINDINGS: Lines and Tubes: None. Lungs/Pleura: No focal consolidation, pleural effusion or pneumothorax. Cardiomediastinum: Unremarkable. Other: No acute osseous abnormality. IMPRESSION: 1. No acute cardiopulmonary abnormality.
[2025-01-13 01:03] LABS: Alkaline Phosphatase 79 U/L (46-116); Anion Gap 10 (5-15); BUN/Creatinine Ratio 9.6 (10.0-20.0); Calcium 9.3 mg/dL (8.7-10.4); Carbon Dioxide 24 mmol/L (20-31); Glucose 88 mg/dL (74-106); Potassium 3.9 mmol/L (3.5-5.1); Sodium 142 mmol/L (136-145); Total Protein 7.6 g/dL (5.7-8.2)
[2025-01-13 01:04] LABS: Bilirubin, Total 0.3 mg/dL (0.2-1.0)
[2025-01-13 01:06] LABS: Alanine Aminotransferase 44 U/L (7-40); Albumin 4.9 g/dL (3.2-4.8); Blood Urea Nitrogen 8 mg/dL (9-23); Chloride 108 mmol/L (98-107)
[2025-01-13 01:38] LABS: Rapid Strep A Screen-Throat Negative
[2025-01-13 01:39] LABS: COVID19 ANTIGEN SOFIA FIA NEGATIVE (NEGATIVE)
[2025-01-13 02:11] LABS: Base Excess -2.4 mmol/L (-2.0-3.0)
[2025-01-13] MEDS ORDERED: AZITTAB2 PO (02:28)
[2025-01-13 03:00] VITALS: O2SAT 97
[2025-01-13] MEDS: THROAT LOZENGES(CEPASTAT) MT ONE (03:05)
== END 2025-01-13 04:02 | disposition home or self-care (01) ==
LOC: ER 23:52
DX: J06.9 Acute upper respiratory infection, unspecified (principal); J45.909 Unspecified asthma, uncomplicated; I10 Essential (primary) hypertension; G89.29 Other chronic pain; Z59.00 Homelessness unspecified; Z20.822 Contact with and (suspected) exposure to COVID-19
CPT/HCPCS: 36415; 36600; 71045; 80053; 82805; 83605; 85025; 87070; 87426; 87804; 87880; 94640

== ENCOUNTER 2025-01-18 22:40 | Emergency (ER) | payer MEDICAID ==
[~2025-01-18] VITALS: Ht 167.6 cm; Wt 76.2 kg
[~2025-01-18 22:40] MED LIST changes: +AZITTAB2 PO
[2025-01-18] MEDS ORDERED: HYDR-4798 PO (23:57)
--- NOTE | 2025-01-18 23:58 | ED.PDOC ---
Back pain HPI HPI Comments 34-year-old male complaining of chronic back pain. States over the last 3-4 days he has been having increasing pain that is on the right side that radiates down his right leg. No heavy lifting no prior trauma. States he changed doctors, he was initially going to pain management receiving [place] 10s but states with a new doctor he has a good new referral to a new pain management. Patient states he has only been taking ibuprofen at home. Nothing makes it better, nothing makes it worse. Chief Complaint: Back Pain Time Seen by MD: 23:38 Reviewed Notes: Nurses Notes Allergies: Coded Allergies: Cyclobenzaprine (Verified Allergy, Unknown, 11/16/24) Ibuprofen (Verified Allergy, Unknown, 11/16/24) Ketorolac Tromethamine (Verified Allergy, Unknown, 11/16/24) Tramadol (Verified Allergy, Unknown, 11/16/24) Home Meds Active Scripts Azithromycin (Zithromax Tri-Sang) 500 Mg Tab, 500 MG PO DAILY for 6 Days, #6 TAB Prov:RAVEN HANNA DO 01/13/25 Baclofen (Baclofen) 10 Mg Tab, 10 MG PO TID for 5 Days, #15 TAB 0 Refills Prov:BREA MITTAL RESIDENT 01/06/25 Acetaminophen (Acetaminophen Er) 650 Mg Tab, 650 MG PO TIDPRN PRN, #15 TAB Prov:JUWAN LEW MD 12/25/24 Information Source: Patient Mode of Arrival: Ambulatory Past Medical History PAST MEDICAL HISTORY: Asthma, High Lipids, HTN Surgical History: Denies all surgeries Family History Family History: Reviewed,noncontributory to illness Social History Smoker: Non-Smoker Alcohol: Denies ETOH Use Drugs: Denies Drug Use Lives In: Homeless Constitutional: denies: chills, diaphoresis, fatigue, fever, malaise, sweats, weakness, others EENTM: denies: blurred vision, double vision, ear bleeding, ear discharge, ear drainage, ear pain, ear ringing, eye pain, eye redness, hearing loss, mouth pain, mouth swelling, nasal discharge, nose bleeding, nose congestion, nose pain, photophobia, tearing, throat pain, throat swelling, voice changes, others Respiratory: denies: cough, hemoptysis, orthopnea, SOB at rest, shortness of breath, SOB with excertion, stridor, wheezing, others Cardiovascular: denies: chest pain, dizzy spells, diaphoresis, Dyspnea on exertion, edema, irregular heart beat, left arm pain, lightheadedness, palpitations, PND, syncope, others Gastrointestinal: denies: abdomen distended, abdominal pain, blood streaked bowels, constipated, diarrhea, dysphagia, difficulty swallowing, hematemesis, melena, nausea, poor appetite, poor fluid intake, rectal bleeding, rectal pain, vomiting, others Genitourinary: denies: burning, dysuria, flank pain, frequency, hematuria, incontinence, penile discharge, penile sore, pain, testicle pain, testicle swelling, urgency, others Neurological: denies: dizziness, fainting, headache, left sided numbness, left sided weakness, numbness, paresthesia, pre-existing deficit, right sided numbness, right sided weakness, seizure, speech problems, tingling, tremors, weakness, others Musculoskeletal: reports: back pain; denies: gout, joint pain, joint swelling, muscle pain, muscle stiffness, neck pain, others Integumetry: denies: bruises, change in color, change in hair/nails, dryness, laceration, lesions, lumps, rash, wounds, others Physical Exam General Appearance: No Apparent Distress, Normal HEENT: Normal ENT Inspection, Pharynx Normal, TMs Normal Neck: Full Range of Motion, Non-Tender, Normal, Normal Inspection Respiratory: Chest Non-Tender, Lungs Clear, No Accessory Muscle Use, No Respiratory Distress, Normal Breath Sounds Cardiovascular: No Edema, No JVD, No Murmur, No Gallop, Normal Peripheral Pulses, Regular Rate/Rhythm Breast Exam: Deferred Gastrointestinal: No Organomegaly, Non Tender, No Pulsatile Mass, Normal Bowel Sounds, Soft Genitalia: Deferred Pelvic: Deferred Rectal: Deferred Extremities: No calf tenderness, Normal capillary refill, Normal inspection, No rmal range of motion, Non-tender, No pedal edema Musculoskeletal : Location: Right Extremity Location: Back (Paraspinous muscles tender to palpation, patient able to ambulate without assistance. Negative straight leg raise) Apperance: Normal Neurologic: Alert, walking dragline operator II-XII nml as Tested, No Motor Deficits, Normal Affect, Normal Mood, No Sensory Deficits Cerebellar Function: Normal Reflexes: Normal Skin: Dry, Normal Color, Warm Lymphatic: No Adenopathy Was a procedure done? Was a procedure done?: No Back Pain Differential Dx Differential Diagnosis: Fracture, Musculoskeletal Pain, Urinary Tract Infection X-Ray, Labs, Meds, VS Vital Signs Date Time Temp Pulse Resp B/P (MAP) Pulse Ox O2 Delivery O2 Flow Rate FiO2 01/18/25 22:42 98.0 98 16 145/95 98 98.0 X-Ray, Labs, Meds, VS Comment Imaging was reviewed by this provider, there is no obvious pathological or acute disease process. Pending radiology review Labs were reviewed by this provider, no abnormalities Vital signs reviewed by this provider, clinically stable Time of 1ST Reevaluation: 23:58 Reevaluation 1ST: Improved Patient Education/Counseling: Diagnosis, Treatment, Need For Follow Up (Follow up with PCP next available appointment. Return to the emergency department if symptoms worsen.) Family Education/Counseling: Diagnosis, Treatment SEPSIS Sepsis Screen Date sepsis recognized/suspect: Jan 18, 2025 Time Sepsis recognized/suspect: 2241 Recent Procedure: No On Antibiotic Therapy: No Respiratory Rate >20: No Heart Rate >90: Yes Temp<36 C (96.8 F) or >38.3 C: No SBP <90 or MAP <65 mmHG: No New Acute Mental Status Change: No Is the patient on CPAP, BIPAP,: No Physician Orders Hydrocodone-Acet 5/325mg Tab ([place] 5/32 (01/19/25 00:00) Vital Signs Date Time Temp Pulse Resp B/P (MAP) Pulse Ox O2 Delivery O2 Flow Rate FiO2 01/18/25 22:42 98.0 98 16 145/95 98 98.0 Departure 1 Departure Time of Disposition: 23:56 Impression: Primary Impression: Chronic pain Qualified Codes: G89.4 - Chronic pain syndrome Disposition: HOME / SELF CARE / HOMELESS Condition: Stable e-Prescriptions Hydrocodone-Acetaminophen (Hydrocodone Bitartrate/AC 10-325 mg) 1 Tab Tab 1 TAB PO BID PRN, #15 TAB Prov: CASSANDRA MARRERO 01/18/25 Discharged With: Self Critical Care Note Critical Care Time?: No Stability Stability form required: No Heart Score Heart Score: Heart Score Response (Comments) Value History N/A 0 EKG N/A 0 Age N/A 0 Risk Factors N/A 0 Troponin N/A 0 Total 0 CASSANDRA MARRERO [employer] Jan 18, 2025 23:58
[2025-01-19 00:46] VITALS: BP 128/84; TEMP 97.6
[2025-01-19 00:55] VITALS: PULSE 94; RESP 20; O2SAT 99
[2025-01-19] MEDS: HYDROcodone-ACET 5/325MG TAB PO ONE (00:59)
== END 2025-01-19 01:01 | disposition home or self-care (01) ==
LOC: ER 22:40
DX: G89.4 Chronic pain syndrome (principal); M54.9 Dorsalgia, unspecified; J45.909 Unspecified asthma, uncomplicated; I10 Essential (primary) hypertension; Z59.00 Homelessness unspecified; Z79.899 Other long term (current) drug therapy; Z88.5 Allergy status to narcotic agent; Z88.6 Allergy status to analgesic agent

== ENCOUNTER 2025-01-26 00:24 | Emergency (ER) | payer MEDICAID ==
[~2025-01-26] VITALS: Ht 160 cm; Wt 75.3 kg
[~2025-01-26 00:24] MED LIST changes: +HYDR-4798 PO
[2025-01-26 00:28] VITALS: BP 138/94; PULSE 102; RESP 18; TEMP 97.6; O2SAT 100
[2025-01-26] MEDS ORDERED: ACET500T58 PO (02:39)
[2025-01-26] MEDS ORDERED: METH4PAK PO (02:39)
--- NOTE | 2025-01-26 02:39 | ED.PDOC ---
Back pain HPI HPI Comments 34-year-old male presents to ER with complaints of back pain x2 days. Patient with past medical history significant for chronic lumbar back pain reports he has been experiencing worsening right lower lumbar back pain with radiation towards right buttock x2 days. Denies any trauma/injury/heavy lifting to cause his worsening back pain and rates his current pain a 12/16. Patient also denies use of medications for current symptoms and presents to ER ambulatory on arrival, with steady gait, in no distress. Denies fever, body aches, chills, night sweats, abdominal pain, chest pain, extremity weakness, changes in urination/BM or any further symptoms/complaints Chief Complaint: Back Pain Time Seen by MD: 00:41 Primary Care Provider: UNKNOWN Reviewed Notes: Nurses Notes, Medications, Allergies Allergies: Coded Allergies: Cyclobenzaprine (Verified Allergy, Unknown, 11/16/24) Ibuprofen (Verified Allergy, Unknown, 11/16/24) Ketorolac Tromethamine (Verified Allergy, Unknown, 11/16/24) Tramadol (Verified Allergy, Unknown, 11/16/24) Home Meds Active Scripts Methylprednisolone (Medrol Dosepak) 4 Mg Sang, 4 MG PO UD, #21 TAB 0 Refills UAD Prov:SUSIE MCKENZIE 01/26/25 Acetaminophen (Acetaminophen) 500 Mg Tab, 500 MG PO Q4HPRN, #30 TAB 0 Refills Prov:SUSIE MCKENZIE 01/26/25 Hydrocodone-Acetaminophen (Hydrocodone Bitartrate/AC 10-325 mg) 1 Tab Tab, 1 TAB PO BID PRN, #15 TAB Prov:CASSANDRA MARRERO 01/18/25 Azithromycin (Zithromax Tri-Sang) 500 Mg Tab, 500 MG PO DAILY for 6 Days, #6 TAB Prov:RAVEN HANNA DO 01/13/25 Baclofen (Baclofen) 10 Mg Tab, 10 MG PO TID for 5 Days, #15 TAB 0 Refills Prov:BREA MITTAL 01/06/25 Acetaminophen (Acetaminophen Er) 650 Mg Tab, 650 MG PO TIDPRN PRN, #15 TAB Prov:JUWAN LEW MD 12/25/24 Information Source: Patient Mode of Arrival: Ambulatory Past Medical History PAST MEDICAL HISTORY: Asthma, High Lipids, HTN Surgical History: Denies all surgeries Family History Family History: Unknown Social History Smoker: Non-Smoker Alcohol: Denies ETOH Use Drugs: Denies Drug Use Lives In: Homeless Constitutional: denies: chills, diaphoresis, fatigue, fever, malaise, sweats, weakness, others EENTM: denies: blurred vision, double vision, ear bleeding, ear discharge, ear drainage, ear pain, ear ringing, eye pain, eye redness, hearing loss, mouth pain, mouth swelling, nasal discharge, nose bleeding, nose congestion, nose pain, photophobia, tearing, throat pain, throat swelling, voice changes, others Respiratory: denies: cough, hemoptysis, orthopnea, SOB at rest, shortness of breath, SOB with excertion, stridor, wheezing, others Cardiovascular: denies: chest pain, dizzy spells, diaphoresis, Dyspnea on exertion, edema, irregular heart beat, left arm pain, lightheadedness, palpitations, PND, syncope, others Gastrointestinal: denies: abdomen distended, abdominal pain, blood streaked bowels, constipated, diarrhea, dysphagia, difficulty swallowing, hematemesis, melena, nausea, poor appetite, poor fluid intake, rectal bleeding, rectal pain, vomiting, others Genitourinary: denies: burning, dysuria, flank pain, frequency, hematuria, incontinence, penile discharge, penile sore, pain, testicle pain, testicle swelling, urgency, others Neurological: denies: dizziness, fainting, headache, left sided numbness, left sided weakness, numbness, paresthesia, pre-existing deficit, right sided numbness, right sided weakness, seizure, speech problems, tingling, tremors, weakness, others Musculoskeletal: reports: others (As stated in HPI) Integumetry: denies: bruises, change in color, change in hair/nails, dryness, laceration, lesions, lumps, rash, wounds, others Allergic/Immunocompromised: denies: Difficulty Healing, Frequent Infections, Hives, Itching, others Hematologic/Lymphatic: denies: anemia, blood clots, easy bleeding, easy bruising, swollen glands, others Endocrine: denies: excessive hunger, excessive sweating, excessive thirst, excessive urination, flushing, intolerance to cold, intolerance to heat, unexplained weight gain, unexplained weight loss, others Psychiatric: denies: anxiety, bipolar disorder, depression, hopeless, panic disorder, schizophrenia, sleepless, suicidal, others Physical Exam General Appearance: No Apparent Distress HEENT: PERRL/EOMI Neck: Full Range of Motion, Non-Tender, Normal Respiratory: Chest Non-Tender, Lungs Clear, No Accessory Muscle Use, No Respiratory Distress, Normal Breath Sounds Cardiovascular: No Murmur, No Gallop, Regular Rate/Rhythm Breast Exam: Deferred Gastrointestinal: Non Tender, No Pulsatile Mass, Soft Genitalia: Deferred Pelvic: Deferred Rectal: Deferred Extremities: No calf tenderness, Normal capillary refill, Normal range of motion Musculoskeletal : Extremity Location: Back (TTP to right lower lumbar paraspinals noted. No bony tenderness to lumbar/thoracic spine noted. Steady gait appreciated) Neurologic: Alert, No Motor Deficits, Normal Affect, Normal Mood, No Sensory Deficits Cerebellar Function: Normal Reflexes: Normal Skin: Dry, Normal Color, Warm Peripheral Pulses: 2+ femoral (R), 2+ femoral (L), 2+ dorsalis pedis (R), 2+ dorsalis pedis (L), 2+ Radial (R), 2+ Radial (L), 2+ Brachial (R), 2+ Brachial (L) Lymphatic: No Adenopathy Was a procedure done? Was a procedure done?: No Sedation Sedation?: No Back Pain Differential Dx Differential Diagnosis: AAA, Fracture, Urinary Tract Infection, Other (Neurovascular injury) X-Ray, Labs, Meds, VS Vital Signs Date Time Temp Pulse Resp B/P (MAP) Pulse Ox O2 Delivery O2 Flow Rate FiO2 01/26/25 00:28 97.6 102 18 138/94 100 97.6 Tylenol #3 one tablet p.o. ordered Patient neurovascularly intact and reported improvement in symptoms prior to discharge Advised to follow up with PCP and pain management in 1-2 days Patient verbalized understanding and agreeable with current plan of care Advised to return to ER immediately if symptoms worsen Time of 1ST Reevaluation: 02:02 Reevaluation 1ST: N/A Patient Education/Counseling: Diagnosis, Treatment, Prognosis, Need For Follow Up Family Education/Counseling: No Family Present SEPSIS Sepsis Screen Date sepsis recognized/suspect: Jan 26, 2025 Time Sepsis recognized/suspect: 0028 Recent Procedure: No On Antibiotic Therapy: No Respiratory Rate >20: No Heart Rate >90: Yes Temp<36 C (96.8 F) or >38.3 C: No SBP <90 or MAP <65 mmHG: No New Acute Mental Status Change: No Is the patient on CPAP, BIPAP,: No Physician Orders Acetaminophen/Codeine Tablet (Tylenol W/ (01/26/25 02:45) Vital Signs Date Time Temp Pulse Resp B/P (MAP) Pulse Ox O2 Delivery O2 Flow Rate FiO2 01/26/25 00:28 97.6 102 18 138/94 100 97.6 Departure 1 Departure Time of Disposition: 02:37 Impression: Primary Impression: Sciatica, right side Disposition: 01 HOME / SELF CARE / HOMELESS Condition: Stable e-Prescriptions Methylprednisolone (Medrol Dosepak) 4 Mg Sang 4 MG PO UD, #21 TAB 0 Refills UAD Prov: SUSIE MCKENZIE 01/26/25 Acetaminophen (Acetaminophen) 500 Mg Tab 500 MG PO Q4HPRN, #30 TAB 0 Refills Prov: SUSIE MCKENZIE 01/26/25 Discharged With: Friend Critical Care Note Critical Care Time?: No Stability Stability form required: No Heart Score Heart Score: Heart Score Response (Comments) Value History N/A 0 EKG N/A 0 Age N/A 0 Risk Factors N/A 0 Troponin N/A 0 Total 0 SUSIE MCKENZIE Jan 26, 2025 02:39
[2025-01-26] MEDS: ACETAMINOPHEN/CODEINE#3 (300/30mg) TAB PO ONE (02:51)
== END 2025-01-26 03:10 | disposition home or self-care (01) ==
LOC: ER 00:24
DX: M54.31 Sciatica, right side (principal); I10 Essential (primary) hypertension; J45.909 Unspecified asthma, uncomplicated; Z88.5 Allergy status to narcotic agent; Z88.6 Allergy status to analgesic agent

== ENCOUNTER 2025-01-29 23:43 | Emergency (ER) | payer MEDICAID ==
[~2025-01-29] VITALS: Ht 160 cm; Wt 75.4 kg
[~2025-01-29 23:43] MED LIST changes: +ACET500T58 PO; +METH4PAK PO
--- NOTE | 2025-01-30 00:56 | DVH ---
CLINICAL INDICATION: STATUS POST FALL INJURY PAIN TECHNIQUE: XY L ANKLE 3 VIEW Comparison: XR ANKLE COMP BILAT on DOS: 01/20/25, XR FOOT 3+ VIEWS on DOS: 07/15/21, XR FOOT 2 VIEWS on DOS: 05/21/21, XR FOOT 3+ VIEWS on DOS: 04/25/21 FINDINGS/IMPRESSION: : There is no evidence of acute fracture or dislocation. Soft tissues are unremarkable.
--- NOTE | 2025-01-30 00:58 | DVH ---
EXAM: XY LUMBAR SPINE 3 VIEW HISTORY: STATUS POST FALL INJURY AND PAIN COMPARISON: XR L-SPINE LIMITED (AP/LAT) on DOS: 01/20/25, XR L-SPINE LIMITED (AP/LAT) on DOS: 01/14/25 , XY LUMBAR SPINE 3 VIEW on DOS: 01/05/25, CT SPINE LUMBAR WITHOUT on DOS: 01/02/25, CT SPINE LUMBAR WI THOUT on DOS: 12/25/24 TECHNIQUE: AP and lateral views of the lumbar spine and spot lateral of the lumbosacral junction were performed. FINDINGS/IMPRESSION: No acute displaced fracture. Intervertebral disc heights appear maintained. The alignment is maintain ed.
--- NOTE | 2025-01-30 01:04 | ED.PDOC ---
[place]. trauma (HPI) HPI Comments 34-year-old male chief complaint trip and fall. Patient complaining of acute on chronic low back pain and left ankle pain states he landed on his back and twisted his left ankle. Rates pain 8/10 on pain scale sharp shooting type pain. Reports no numbness or weakness denies loss of bowel bladder control denies any saddle anesthesia reports no other known injury states he did not hit his head reports no neck pain Chief Complaint: Fall Injury Time Seen by MD: 00:01 Primary Care Provider: UNKNOWN Reviewed notes: Nurses Notes, Medications, Allergies Allergies: Coded Allergies: Cyclobenzaprine (Verified Allergy, Unknown, 11/16/24) Ibuprofen (Verified Allergy, Unknown, 11/16/24) Ketorolac Tromethamine (Verified Allergy, Unknown, 11/16/24) Tramadol (Verified Allergy, Unknown, 11/16/24) Home Meds Active Scripts Methylprednisolone (Medrol Dosepak) 4 Mg Sang, 4 MG PO UD, #21 TAB 0 Refills UAD Prov:SUSIE MCKENZIE 01/26/25 Acetaminophen (Acetaminophen) 500 Mg Tab, 500 MG PO Q4HPRN, #30 TAB 0 Refills Prov:SUSIE MCKENZIE 01/26/25 Hydrocodone-Acetaminophen (Hydrocodone Bitartrate/AC 10-325 mg) 1 Tab Tab, 1 TAB PO BID PRN, #15 TAB Prov:CASSANDRA MARRERO 01/18/25 Azithromycin (Zithromax Tri-Sang) 500 Mg Tab, 500 MG PO DAILY for 6 Days, #6 TAB Prov:RAVEN HANNA DO 01/13/25 Baclofen (Baclofen) 10 Mg Tab, 10 MG PO TID for 5 Days, #15 TAB 0 Refills Prov:BREA MITTAL 01/06/25 Acetaminophen (Acetaminophen Er) 650 Mg Tab, 650 MG PO TIDPRN PRN, #15 TAB Prov:JUWAN LEW MD 12/25/24 Information Source: Patient Mode of Arrival: Ambulatory Past Medical History PAST MEDICAL HISTORY: Asthma, High Lipids, HTN Surgical History: Denies all surgeries Family History Family History: Unknown Social History Smoker: Non-Smoker Alcohol: Denies ETOH Use Drugs: Denies Drug Use Lives In: Homeless All Other Systems: Reviewed and Negative (see hpi) Physical Exam General Appearance: No Apparent Distress, Normal HEENT: Normal ENT Inspection, Pharynx Normal, TMs Normal Neck: Full Range of Motion, Non-Tender Respiratory: Chest Non-Tender, Lungs Clear, No Respiratory Distress, Normal Breath Sounds Cardiovascular: No Edema, No JVD, No Murmur, No Gallop, Normal Peripheral Pulses, Regular Rate/Rhythm Breast Exam: Deferred Gastrointestinal: No Organomegaly, Non Tender, No Pulsatile Mass, Normal Bowel Sounds, Soft Genitalia: Deferred Pelvic: Deferred Rectal: Deferred Extremities: Normal capillary refill, Normal range of motion, Non-tender Musculoskeletal : Location: Bilateral Extremity Location: Ankle (Mild edema noted about left ankle strength sensory motion intact positive pedal pulse no noted lesions abrasions or ecchymosis.), Back (Moderate tenderness palpated over lower back musculature no tenderness over L1 through L5 spine without any crepitus or step-offs no noted gross visible external trauma. Strength sensory motion intact. Saddle sensation intact. Negative straight leg raise bilateral. Positive pedal pul ses.) Apperance: Normal Neurologic: Alert, No Motor Deficits, Normal Affect, Normal Mood, No Sensory Deficits Cerebellar Function: Normal Reflexes: Normal Skin: Dry, Normal Color, Warm Lymphatic: No Adenopathy Was a procedure done? Was a procedure done?: No Differential Diagnosis Multiple Trauma: Fractures, Contusion X-Ray, Labs, Meds, VS Vital Signs Date Time Temp Pulse Resp B/P (MAP) Pulse Ox O2 Delivery O2 Flow Rate FiO2 01/29/25 23:52 98.2 91 18 141/92 98 98.2 X-Ray, Labs, Meds, VS Comment Lumbar spine x-ray shows no acute fractures, subluxations, or osseous lesions. Left ankle shows no acute fractures osseous lesions dislocations Patient given Percocet 5 mg reports improvement in pain and function requesting discharge at this time. Patient refused splint and crutches left ankle wrapped with Kaleb wrap. Advised on rice. [id number] Tylenol as needed for the pain per labeled dosing instructions. Patient with multiple allergies to NSAIDs. Script and trial Medrol Dosepak. Advised take medication as prescribed side effects discussed. Advised to follow up with his PCP in 2-3 days as [facility] ER return precautions given patient indicates understanding agrees with discharge plan of care. Time of 1ST Reevaluation: 00:30 Reevaluation 1ST: Unchanged Time of 2ND Reevaluation: 01:06 Reevaluation 2ND: Improved Patient Education/Counseling: Diagnosis, Treatment, Need For Follow Up Family Education/Counseling: No Family Present Departure 1 Departure Time of Disposition: 01:06 Impression: Primary Impression: Lumbar strain Qualified Codes: S39.012A - Strain of muscle, fascia and tendon of lower back, initial encounter Additional Impression: Sprain of ankle, left Qualified Codes: S93.402A - Sprain of unspecified ligament of left ankle, initial encounter Disposition: 01 HOME / SELF CARE / HOMELESS Condition: Stable Discharged With: Self Critical Care Note Critical Care Time?: No Stability Stability form required: SARAH Rendon Jan 30, 2025 01:03
[2025-01-30 01:24] VITALS: BP 132/94; PULSE 87; RESP 18; TEMP 97.9; O2SAT 98
[2025-01-30] MEDS: OXYCODONE W/ ACETAMINOPHEN 5/325MG TABLET PO ONE (01:24)
== END 2025-01-30 01:29 | disposition home or self-care (01) ==
LOC: ER 23:43
DX: S93.402A Sprain of unspecified ligament of left ankle, initial encounter (principal); S39.012A Strain of muscle, fascia and tendon of lower back, initial encounter; Z59.00 Homelessness unspecified; Z79.899 Other long term (current) drug therapy; Z88.5 Allergy status to narcotic agent; Z88.6 Allergy status to analgesic agent; J45.909 Unspecified asthma, uncomplicated; I10 Essential (primary) hypertension; E78.5 Hyperlipidemia, unspecified; W01.0XXA Fall on same level from slipping, tripping and stumbling without subsequent striking against object, initial encounter; Y93.89 Activity, other specified; Y92.89 Other specified places as the place of occurrence of the external cause; Y99.8 Other external cause status
CPT/HCPCS: 72100; 73610

== ENCOUNTER 2025-02-04 21:55 | Emergency (ER) | payer MEDICAID ==
[~2025-02-04] VITALS: Ht 160 cm; Wt 73.0 kg
[2025-02-05 07:31] LABS: Potassium 4.0 mmol/L (3.5-5.1); Sodium 143 mmol/L (136-145)
[2025-02-05 07:32] LABS: Anion Gap 8 (5-15); Carbon Dioxide 25 mmol/L (20-31)
[2025-02-05 07:33] LABS: Calcium 9.5 mg/dL (8.7-10.4)
[2025-02-05 07:37] LABS: BUN/Creatinine Ratio 11.8 (10.0-20.0); Blood Urea Nitrogen 12 mg/dL (9-23)
[2025-02-05 07:42] LABS: Chloride 110 mmol/L (98-107); Glucose 133 mg/dL (74-106)
[2025-02-05 09:17] VITALS: BP 160/103; PULSE 85; RESP 18; TEMP 98.5; O2SAT 98
[2025-02-05] MEDS ORDERED: AMOX500T3 PO (09:35)
[2025-02-05] MEDS ORDERED: PRED10TA PO (09:35)
--- NOTE | 2025-02-05 10:19 | ECG ---
[facility] Test Date: 2025-02-05 Test Time: 00:31:04 Pat Name: SHELLY RAMIRES Department: Room: Gender: M [employer]: : 1990 Requested By: EMERGENCY EMERGENCY Order Number: [id number] Reading MD: Measurements Intervals [place] Rate: 83 P: 17 RI: 157 QRS: 32 QRSD: 78 T: 67 QT: 407 QTc: 479 Interpretive Statements Sinus rhythm Borderline T wave abnormalities Borderline prolonged QT interval Please click the below link to view image of tracing.
--- NOTE | 2025-02-05 11:40 | ED.PDOC ---
HPI Comments 34 y.o male with PMHx of HTN, HLD, and heart murmur, presents to the ED for a chief complaint of substernal chest pain that started earlier today. Patient describes pain as sharp, constant and non radiating with no alleviating factors. Patient reports recent PNA diagnose 1-2 months ago and continues to have a cough. Patient has not been able to see a mold stamper given his recent switch of PCP. He denies any SOB, fever, chill, nausea, vomiting or abdominal pain. Chief Complaint: Chest Pain Time Seen by MD: 07:17 Primary Care Provider: UNKNOWN Reviewed Notes: Nurses Notes, Medications, Allergies Allergies: Coded Allergies: Cyclobenzaprine (Verified Allergy, Unknown, 11/16/24) Ibuprofen (Verified Allergy, Unknown, 11/16/24) Ketorolac Tromethamine (Verified Allergy, Unknown, 11/16/24) Tramadol (Verified Allergy, Unknown, 11/16/24) Home Meds Active Scripts Prednisone (Prednisone) 10 Mg Tab, 10 MG PO DAILY for 5 Days, #5 MG Prov:RUPERT PERDOMO MD 02/05/25 Amoxicillin Trihydrate (Amoxicillin) 500 Mg Tab, 1 TAB PO BID for 10 Days, #20 TAB Prov:RUPERT PERDOMO MD 02/05/25 Methylprednisolone (Medrol Dosepak) 4 Mg Sang, 4 MG PO UD, #21 TAB 0 Refills UAD Prov:SUSIE MCKENZIE 01/26/25 Acetaminophen (Acetaminophen) 500 Mg Tab, 500 MG PO Q4HPRN, #30 TAB 0 Refills Prov:SUSIE MCKENZIE 01/26/25 Hydrocodone-Acetaminophen (Hydrocodone Bitartrate/AC 10-325 mg) 1 Tab Tab, 1 TAB PO BID PRN, #15 TAB Prov:CASSANDRA MARRERO 01/18/25 Azithromycin (Zithromax Tri-Sang) 500 Mg Tab, 500 MG PO DAILY for 6 Days, #6 TAB Prov:RAVEN HANNA DO 01/13/25 Baclofen (Baclofen) 10 Mg Tab, 10 MG PO TID for 5 Days, #15 TAB 0 Refills Prov:BREA MITTAL 01/06/25 Acetaminophen (Acetaminophen Er) 650 Mg Tab, 650 MG PO TIDPRN PRN, #15 TAB Prov:JUWAN LEW MD 12/25/24 Information Source: Patient Mode of Arrival: EMS Severity: Moderate Timing: Hours Duration: Since onset Location: Substernal Radiation: No Radiation Quality: Sharp Onset: At Rest Cardiac Risk Factors: Hyperlipidemia, HTN PE Risk Factors: None History of: None Associated Signs and Symptoms: Other Past Medical History PAST MEDICAL HISTORY: Asthma, High Lipids, HTN Surgical History: Denies all surgeries Family History Family History: Unknown Social History Smoker: Non-Smoker Alcohol: Denies ETOH Use Drugs: Denies Drug Use Lives In: Homeless Constitutional: denies: chills, diaphoresis, fatigue, fever, malaise, sweats, weakness, others EENTM: denies: blurred vision, double vision, ear bleeding, ear discharge, ear drainage, ear pain, ear ringing, eye pain, eye redness, hearing loss, mouth pain, mouth swelling, nasal discharge, nose bleeding, nose congestion, nose pain, photophobia, tearing, throat pain, throat swelling, voice changes, others Respiratory: reports: cough; denies: hemoptysis, orthopnea, SOB at rest, shortness of breath, SOB with excertion, stridor, wheezing, others Cardiovascular: reports: chest pain; denies: dizzy spells, diaphoresis, Dyspnea on exertion, edema, irregular heart beat, left arm pain, lightheadedness, palpitations, PND, syncope, others Gastrointestinal: denies: abdomen distended, abdominal pain, blood streaked bowels, constipated, diarrhea, dysphagia, difficulty swallowing, hematemesis, melena, nausea, poor appetite, poor fluid intake, rectal bleeding, rectal pain, vomiting, others Genitourinary: denies: burning, dysuria, flank pain, frequency, hematuria, incontinence, penile discharge, penile sore, pain, testicle pain, testicle swelling, urgency, others Neurological: denies: dizziness, fainting, headache, left sided numbness, left sided weakness, numbness, paresthesia, pre-existing deficit, right sided numbness, right sided weakness, seizure, speech problems, tingling, tremors, weakness, others Musculoskeletal: denies: back pain, gout, joint pain, joint swelling, muscle pain, muscle stiffness, neck pain, others Integumetry: denies: bruises, change in color, change in hair/nails, dryness, laceration, lesions, lumps, rash, wounds, others Allergic/Immunocompromised: denies: Difficulty Healing, Frequent Infections, Hives, Itching, others Hematologic/Lymphatic: denies: anemia, blood clots, easy bleeding, easy bruising, swollen glands, others Endocrine: denies: excessive hunger, excessive sweating, excessive thirst, excessive urination, flushing, intolerance to cold, intolerance to heat, unexplained weight gain, unexplained weight loss, others Psychiatric: denies: anxiety, bipolar disorder, depression, hopeless, panic disorder, schizophrenia, sleepless, suicidal, others All Other Systems: Reviewed and Negative Physical Exam General Appearance: Moderate Distress HEENT: Normal ENT Inspection, Pharynx Normal, TMs Normal Neck: Full Range of Motion, Non-Tender, Normal, Normal Inspection Respiratory: Chest Non-Tender, Lungs Clear, No Accessory Muscle Use, No Respiratory Distress, Normal Breath Sounds Cardiovascular: No Edema, No JVD, No Murmur, No Gallop, Normal Peripheral Pulses, Regular Rate/Rhythm Breast Exam: Deferred Gastrointestinal: No Organomegaly, Non Tender, No Pulsatile Mass, Normal Bowel Sounds, Soft Genitalia: Deferred Pelvic: Deferred Rectal: Deferred Extremities: No calf tenderness, Normal capillary refill, Normal inspection, Normal range of motion, Non-tender, No pedal edema Musculoskeletal : Apperance: Normal Neurologic: Alert, 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 Was a procedure done?: No CP Differential Dx Differential Diagnosis: A-fib, A-Flutter, Angina, Anxiety / Panic Attack, Atrial Dysrhythmia, Electrolyte Disorder, N/A Differential Diagnosis: Angina, Chest Wall Pain, Costochondritis, Gastritis, Pericarditis X-Ray, Labs, Meds, VS Vital Signs Date Time Temp Pulse Resp B/P (MAP) Pulse Ox O2 Delivery O2 Flow Rate FiO2 02/05/25 09:17 85 18 98 Room Air 02/05/25 09:17 98.5 85 18 160/103 (122) 98 98.5 02/05/25 00:31 83 02/04/25 22:02 91 02/04/25 21:55 97.6 88 20 112/77 97 97.6 Lab Test 02/05/25 08:10 02/05/25 07:09 Range/Units Troponin I High Sensitivity 4 3 L </=54 ng/L D-Dimer, Quantitative < 0.19 0.0-0.49 mg/L FEU Sodium Level 143 136-145 mmol/L Potassium Level 4.0 3.5-5.1 mmol/L Chloride Level 110 H 98-107 mmol/L Carbon Dioxide Level 25 20-31 mmol/L Anion Gap 8 5-15 Blood Urea Nitrogen 12 9-23 mg/dL Creatinine 1.02 0.700-1.30 mg/dL Glomerular Filtration Rate Calc 98 >90 mL/min BUN/Creatinine Ratio 11.8 10.0-20.0 Serum Glucose 133 H 74-106 mg/dL Calcium Level 9.5 8.7-10.4 mg/dL Patient alert. Complaining of chest discomfort. Vitals stable. Answering questions. Was given aspirin. D-dimer within normal limits. Cardiac marker within normal limits. He is not in distress. Possible pneumonitis. Was given prescription of prednisone amoxicillin antibiotic. Explained to the patient. Was told to follow up with his primary care physician. Was told to come back if there is any problem. Time of 1ST Reevaluation: 07:23 Reevaluation 1ST: Unchanged Patient Education/Counseling: Diagnosis, Treatment, Prognosis Family Education/Counseling: No Family Present SEPSIS Sepsis Screen Date sepsis recognized/suspect: Feb 04, 2025 Time Sepsis recognized/suspect: 2154 Recent Procedure: No On Antibiotic Therapy: No Respiratory Rate >20: No Heart Rate >90: No Temp<36 C (96.8 F) or >38.3 C: No SBP <90 or MAP <65 mmHG: No New Acute Mental Status Change: No Is the patient on CPAP, BIPAP,: No Vital Signs Date Time Temp Pulse Resp B/P (MAP) Pulse Ox O2 Delivery O2 Flow Rate FiO2 02/05/25 09:17 85 18 98 Room Air 02/05/25 09:17 98.5 85 18 160/103 (122) 98 98.5 02/05/25 00:31 83 02/04/25 22:02 91 02/04/25 21:55 97.6 88 20 112/77 97 97.6 Departure 1 Departure Time of Disposition: 07:40 Impression: Primary Impression: Pneumonitis Disposition: HOME / SELF CARE / HOMELESS Condition: Good e-Prescriptions Prednisone (Prednisone) 10 Mg Tab 10 MG PO DAILY for 5 Days, #5 MG Prov: RUPERT PERDOMO MD 02/05/25 Amoxicillin Trihydrate (Amoxicillin) 500 Mg Tab 1 TAB PO BID for 10 Days, #20 TAB Prov: RUPERT PERDOMO MD 02/05/25 Discharged With: Self Critical Care Note Critical Care Time?: No Stability Stability form required: No Heart Score Heart Score: Heart Score Response (Comments) Value History Slightly Suspicious 0 EKG Normal 0 Age <45 0 Risk Factors >3 or Hx ASHD 2 Troponin Normal limit 0 Total 2 I personally scribed for RUPERT PERDOMO MD ([email or web address]) on 02/05/25 at 07:27. Electronically submitted by Diane Meyer ([facility]). RUPERT PERDOMO MD Feb 05, 2025 07:27
== END 2025-02-05 09:42 | disposition home or self-care (01) ==
LOC: EDBD 21:55 → EDUNIT# 21:55 → ER 22:04
DX: J98.4 Other disorders of lung (principal); E78.5 Hyperlipidemia, unspecified; I10 Essential (primary) hypertension; J45.909 Unspecified asthma, uncomplicated; Z88.6 Allergy status to analgesic agent; Z88.5 Allergy status to narcotic agent; Z79.899 Other long term (current) drug therapy
CPT/HCPCS: 36415; 80048; 84484; 85379; 93005

== ENCOUNTER 2025-02-11 00:21 | Emergency (ER) | payer MEDICAID ==
[~2025-02-11] VITALS: Ht 160 cm; Wt 75.9 kg
[~2025-02-11 00:21] MED LIST changes: +AMOX500T3 PO; +PRED10TA PO
[2025-02-11 00:25] VITALS: BP 149/88; PULSE 93; RESP 18; TEMP 98.2; O2SAT 99
--- NOTE | 2025-02-11 01:51 | ED.PDOC ---
Back pain HPI HPI Comments 34-YEAR-OLD PRESENTS TO ER WITH COMPLAINTS OF BACK PAIN X2 DAYS. PATIENT WITH PAST MEDICAL HISTORY SIGNIFICANT FOR CHRONIC LOWER LUMBAR BACK PAIN REPORTS HE HAS BEEN EXPERIENCING WORSENING RIGHT LOWER LUMBAR BACK PAIN X2 DAYS S/P "WALKING IN THE COLD WEATHER". HE RATES HIS CURRENT PAIN A 10/10 TO RIGHT LOWER LUMBAR REGION WITH RADIATION DOWN RIGHT POSTERIOR LEG. PATIENT IS WELL-KNOWN TO CHECKING INTO ER FOR SIMILAR COMPLAINT AND OFTEN REQUESTS "[facility]CO 10'S" TO HELP HIS PAIN. PATIENT STATES THAT HE IS FOLLOWING UP WITH PAIN MANAGEMENT NEXT WEEK AND PRESENTS TO ER AMBULATORY ON ARRIVAL, WITH STEADY GAIT, IN NO DISTRESS. DENIES FEVER, BODY ACHES, CHILLS, NIGHT SWEATS, NAUSEA/VOMITING, TRAUMA/FALLS/ HEAVY LIFTING, NUMBNESS/TINGLING, EXTREMITY WEAKNESS, ABDOMINAL PAIN, CHEST PAIN, CHANGES IN URINATION/BM OR ANY FURTHER SYMPTOMS/COMPLAINTS Chief Complaint: Back Pain Time Seen by MD: 00:30 Primary Care Provider: UNKNOWN Reviewed Notes: Nurses Notes, Medications, Allergies Allergies: Coded Allergies: Cyclobenzaprine (Verified Allergy, Unknown, 11/16/24) Ibuprofen (Verified Allergy, Unknown, 11/16/24) Ketorolac Tromethamine (Verified Allergy, Unknown, 11/16/24) Tramadol (Verified Allergy, Unknown, 11/16/24) Home Meds Active Scripts Acetaminophen (Acetaminophen) 500 Mg Tab, 500 MG PO Q4HPRN, #30 TAB 0 Refills Prov:SUSIE MCKENZIE 02/11/25 Prednisone (Prednisone) 10 Mg Tab, 10 MG PO DAILY for 5 Days, #5 MG Prov:RUPERT PERDOMO MD 02/05/25 Amoxicillin Trihydrate (Amoxicillin) 500 Mg Tab, 1 TAB PO BID for 10 Days, #20 TAB Prov:RUPERT PERDOMO MD 02/05/25 Methylprednisolone (Medrol Dosepak) 4 Mg Sang, 4 MG PO UD, #21 TAB 0 Refills UAD Prov:SUSIE MCKENZIE 01/26/25 Acetaminophen (Acetaminophen) 500 Mg Tab, 500 MG PO Q4HPRN, #30 TAB 0 Refills Prov:SUSIE MCKENZIE 01/26/25 Hydrocodone-Acetaminophen (Hydrocodone Bitartrate/AC 10-325 mg) 1 Tab Tab, 1 TAB PO BID PRN, #15 TAB Prov:ACSSANDRA MARRERO [employer] SPECIALIST 01/18/25 Azithromycin (Zithromax Tri-Sang) 500 Mg Tab, 500 MG PO DAILY for 6 Days, #6 TAB Prov:RAVEN HANNA DO 01/13/25 Baclofen (Baclofen) 10 Mg Tab, 10 MG PO TID for 5 Days, #15 TAB 0 Refills Prov:BREA MITTAL RESIDENT 01/06/25 Acetaminophen (Acetaminophen Er) 650 Mg Tab, 650 MG PO TIDPRN PRN, #15 TAB Prov:JUWAN LEW MD 12/25/24 Information Source: Patient Mode of Arrival: Ambulatory Past Medical History PAST MEDICAL HISTORY: Asthma, High Lipids, HTN Past Medical History (Other): CHRONIC LUMBAR BACK PAIN Surgical History: Denies all surgeries Family History Family History: Unknown Social History Smoker: Non-Smoker Alcohol: Denies ETOH Use Drugs: Denies Drug Use Lives In: Homeless Constitutional: denies: chills, diaphoresis, fatigue, fever, malaise, sweats, weakness, others EENTM: denies: blurred vision, double vision, ear bleeding, ear discharge, ear drainage, ear pain, ear ringing, eye pain, eye redness, hearing loss, mouth pain, mouth swelling, nasal discharge, nose bleeding, nose congestion, nose pain, photophobia, tearing, throat pain, throat swelling, voice changes, others Respiratory: denies: cough, hemoptysis, orthopnea, SOB at rest, shortness of breath, SOB with excertion, stridor, wheezing, others Cardiovascular: denies: chest pain, dizzy spells, diaphoresis, Dyspnea on exertion, edema, irregular heart beat, left arm pain, lightheadedness, palpitations, PND, syncope, others Gastrointestinal: denies: abdomen distended, abdominal pain, blood streaked bowels, constipated, diarrhea, dysphagia, difficulty swallowing, hematemesis, melena, nausea, poor appetite, poor fluid intake, rectal bleeding, rectal pain, vomiting, others Genitourinary: denies: burning, dysuria, flank pain, frequency, hematuria, incontinence, penile discharge, penile sore, pain, testicle pain, testicle swelling, urgency, others Neurological: denies: dizziness, fainting, headache, left sided numbness, left sided weakness, numbness, paresthesia, pre-existing deficit, right sided num bness, right sided weakness, seizure, speech problems, tingling, tremors, weakness, others Musculoskeletal: reports: others ( STATED IN HPI) Integumetry: denies: bruises, change in color, change in hair/nails, dryness, laceration, lesions, lumps, rash, wounds, others Allergic/Immunocompromised: denies: Difficulty Healing, Frequent Infections, Hives, Itching, others Hematologic/Lymphatic: denies: anemia, blood clots, easy bleeding, easy bruising, swollen glands, others Endocrine: denies: excessive hunger, excessive sweating, excessive thirst, excessive urination, flushing, intolerance to cold, intolerance to heat, unexplained weight gain, unexplained weight loss, others Psychiatric: denies: anxiety, bipolar disorder, depression, hopeless, panic disorder, schizophrenia, sleepless, suicidal, others Physical Exam General Appearance: No Apparent Distress HEENT: PERRL/EOMI Neck: Full Range of Motion, Non-Tender, Normal Respiratory: Chest Non-Tender, Lungs Clear, No Accessory Muscle Use, No Respiratory Distress, Normal Breath Sounds Cardiovascular: No Murmur, No Gallop, Regular Rate/Rhythm Breast Exam: Deferred Gastrointestinal: Non Tender, No Pulsatile Mass, Soft Genitalia: Deferred Pelvic: Deferred Rectal: Deferred Extremities: Normal capillary refill, Normal range of motion Musculoskeletal : Extremity Location: Back (SLIGHT TTP TO RIGHT LOWER LUMBAR PARASPINALS NOTED. NO SKIN CHANGES NOTED. NO BONY TENDERNESS TO LUMBAR/THORACIC SPINE NOTED. GAIT INTACT WITHOUT ABNORMALITY) Neurologic: Alert, No Motor Deficits, Normal Affect, Normal Mood, No Sensory Deficits Cerebellar Function: Normal Reflexes: Normal Skin: Dry, Normal Color, Warm Lymphatic: No Adenopathy Was a procedure done? Was a procedure done?: No Sedation Sedation?: No Back Pain Differential Dx Differential Diagnosis: AAA, Fracture, Urinary Tract Infection, Other (NEUROVASCULAR INJURY) X-Ray, Labs, Meds, VS Vital Signs Date Time Temp Pulse Resp B/P (MAP) Pulse Ox O2 Delivery O2 Flow Rate FiO2 02/11/25 00:25 98.2 93 18 149/88 99 98.2 TYLENOL 650 MG P.O. ORDERED PREVIOUS CHART VISITS REVIEWED PATIENT NEUROVASCULARLY INTACT AND IN NO DISTRESS DURING ER VISIT/PRIOR TO DISCHARGE ADVISED TO FOLLOW UP WITH PCP AND PAIN MANAGEMENT IN 1-2 DAYS PATIENT VERBALIZED UNDERSTANDING AND AGREEABLE WITH CURRENT PLAN OF CARE ADVISED TO RETURN TO ER IMMEDIATELY IF SYMPTOMS WORSEN Time of 1ST Reevaluation: 01:34 Reevaluation 1ST: N/A Patient Education/Counseling: Diagnosis, Treatment, Prognosis, Need For Follow Up Family Education/Counseling: No Family Present SEPSIS Sepsis Screen Date sepsis recognized/suspect: Feb 11, 2025 Time Sepsis recognized/suspect: 0028 Recent Procedure: No On Antibiotic Therapy: No Respiratory Rate >20: No Heart Rate >90: No Temp<36 C (96.8 F) or >38.3 C: No SBP <90 or MAP <65 mmHG: No New Acute Mental Status Change: No Is the patient on CPAP, BIPAP,: No Physician Orders Acetaminophen Tablet (Tylenol Tablet) (02/11/25 02:00) Vital Signs Date Time Temp Pulse Resp B/P (MAP) Pulse Ox O2 Delivery O2 Flow Rate FiO2 02/11/25 00:25 98.2 93 18 149/88 99 98.2 Departure 1 Departure Time of Disposition: 01:49 Impression: Primary Impression: Acute exacerbation of chronic low back pain Disposition: 01 HOME / SELF CARE / HOMELESS Condition: Stable e-Prescriptions Acetaminophen (Acetaminophen) 500 Mg Tab 500 MG PO Q4HPRN, #30 TAB 0 Refills Prov: SUSIE MCKENZIE 02/11/25 Discharged With: Self Critical Care Note Critical Care Time?: No Stability Stability form required: No Heart Score Heart Score: Heart Score Response (Comments) Value History N/A 0 EKG N/A 0 Age N/A 0 Risk Factors N/A 0 Troponin N/A 0 Total 0 SUSIE MCKENZIE Feb 11, 2025 01:50
[2025-02-11] MEDS: ACETAMINOPHEN 325 MG TAB PO ONE (02:00)
== END 2025-02-11 03:21 | disposition home or self-care (01) ==
LOC: ER 00:21
DX: G89.29 Other chronic pain (principal); M54.50 Low back pain, unspecified; I10 Essential (primary) hypertension; J45.909 Unspecified asthma, uncomplicated; E78.5 Hyperlipidemia, unspecified; Z79.899 Other long term (current) drug therapy; Z88.5 Allergy status to narcotic agent; Z88.6 Allergy status to analgesic agent; Z88.8 Allergy status to other drugs, medicaments and biological substances

== ENCOUNTER 2025-02-14 22:41 | Emergency (ER) | payer MEDICAID ==
[~2025-02-14] VITALS: Ht 160 cm; Wt 76.1 kg
[2025-02-15] MEDS: LIDOCAINE 5% TOPICAL PATCH TOP ONE (02:58)
[2025-02-15] MEDS: ACETAMINOPHEN 325 MG TAB PO ONE (02:58)
[2025-02-15 03:00] VITALS: BP 119/79; PULSE 98; RESP 18; TEMP 98.2; O2SAT 96
--- NOTE | 2025-02-15 03:02 | ED.PDOC ---
History of Present Illness HPI Comments 34-year-old male, with a history of chronic back pain, presents with chief complaint of lower back pain. Patient endorses on returning to ED most recent flare-up of chronic back pain, today. No reported recent trauma or injury. He states on pain pain radiating to the back of his his right leg, which he de scribes it being cramping in quality. Patient reports on taking Tylenol for pain, with no relief or improvement. He states on, normally, taking Tennille for managing chronic back pain but is in the process of obtaining a new primary care along with a new prescription. He denies any weakness, numbness, tingling, or further acute symptoms. Patient denies associated weight loss, fever, incontinence, loss of use of limb. REVIEW OF SYSTEMS: General: No fever, no chills, HEENT: No neck pain, no blurred vision Cardiac: No chest pain. No palpitations. Lungs: No shortness of breath, GI: No abdominal pain, no vomiting Musculoskeletal: No joint pain , no back pain Skin: No rash, no wound Neuro: No headache, no dizziness, no syncope PHYSICAL EXAM: General: Awake, alert and oriented. No acute distress. Skin: Skin in warm, dry and intact without rashes or lesions. HEENT: The head is normocephalic and atraumatic. Conjunctivae are clear without exudates or hemorrhage. Sclera is non-icteric. Neck: Normal range of motion. No JVD. Cardiac: Regular rate Respiratory: No signs of respiratory distress. No Stridor. Musculoskeletal: Right lower back tenderness. Extremities: Upper and lower extremities are atraumatic in appearance without deformity. Neurological: The patient is awake, alert and oriented to person, place, and time with normal speech. Speech is clear. There is no facial asymmetry. Psychiatric: Appropriate mood and affect. Good judgement and insight. Chief Complaint: Back Pain Time Seen by MD: 02:30 Primary Care Provider: UNKNOWN Reviewed Notes: Nurses Notes, Medications, Allergies Allergies: Coded Allergies: Cyclobenzaprine (Verified Allergy, Unknown, 11/16/24) Ibuprofen (Verified Allergy, Unknown, 11/16/24) Ketorolac Tromethamine (Verified Allergy, Unknown, 11/16/24) Tramadol (Verified Allergy, Unknown, 11/16/24) Home Meds Active Scripts Acetaminophen (Acetaminophen) 500 Mg Tab, 500 MG PO Q4HPRN, #30 TAB 0 Refills Prov:SUSIE MCKENZIE 02/11/25 Prednisone (Prednisone) 10 Mg Tab, 10 MG PO DAILY for 5 Days, #5 MG Prov:RUPERT PERDOMO MD 02/05/25 Amoxicillin Trihydrate (Amoxicillin) 500 Mg Tab, 1 TAB PO BID for 10 Days, #20 TAB Prov:RUPERT PERDOMO MD 02/05/25 Methylprednisolone (Medrol Dosepak) 4 Mg Sang, 4 MG PO UD, #21 TAB 0 Refills UAD Prov:SUSIE MCKENZIE 01/26/25 Acetaminophen (Acetaminophen) 500 Mg Tab, 500 MG PO Q4HPRN, #30 TAB 0 Refills Prov:SUSIE MCKENZIE 01/26/25 Hydrocodone-Acetaminophen (Hydrocodone Bitartrate/AC 10-325 mg) 1 Tab Tab, 1 TAB PO BID PRN, #15 TAB Prov:CASSANDRA MARRERO 01/18/25 Azithromycin (Zithromax Tri-Sang) 500 Mg Tab, 500 MG PO DAILY for 6 Days, #6 TAB Prov:RAVEN HANNA DO 01/13/25 Baclofen (Baclofen) 10 Mg Tab, 10 MG PO TID for 5 Days, #15 TAB 0 Refills Prov:BREA MITTAL 01/06/25 Acetaminophen (Acetaminophen Er) 650 Mg Tab, 650 MG PO TIDPRN PRN, #15 TAB Prov:JUWAN LEW MD 12/25/24 Information Source: Patient Mode of Arrival: Ambulatory Severity: Moderate Timing: Hours Duration: Since onset Prehospital treatment: Pain Meds Past Medical History PAST MEDICAL HISTORY: Asthma, High Lipids, HTN Past Medical History (Other): Chronic back pain Surgical History: Denies all surgeries Family History Family History: Unknown Social History Smoker: Non-Smoker Alcohol: Denies ETOH Use Drugs: Denies Drug Use Lives In: Homeless Was a procedure done? Was a procedure done?: No Differential Dx Considerations may include: Differential diagnoses considered include but are not limited to back strain or sprain, degenerative disc disease, herniated disc, spinal stenosis, cauda equina syndrome, spinal epidural abscess, spinal fracture, metastatic cancer, aortic dissection, AAA rupture, epidural hematoma, osteomyelitis, pyelonephritis, nephrolithiasis, other X-Ray, Labs, Meds, VS Vital Signs Date Time Temp Pulse Resp B/P (MAP) Pulse Ox O2 Delivery O2 Flow Rate FiO2 02/15/25 03:00 98.2 98 18 119/79 (92) 98.2 02/15/25 03:00 98 18 96 Room Air 02/14/25 22:43 98.0 99 16 127/79 97 98.0 Current Medications Medications (Trade) Dose Ordered Sig/Astrid Route Start Time Stop Time Status Last Admin Acetaminophen (Tylenol Tablet) 650 mg ONCE ONCE PO 02/15/25 02:30 02/15/25 02:31 DC 02/15/25 02:58 Time of 1ST Reevaluation: 02:57 Reevaluation 1ST: Unchanged Patient Education/Counseling: Need For Follow Up Family Education/Counseling: No Family Present SEPSIS Sepsis Screen Date sepsis recognized/suspect: Feb 14, 2025 Time Sepsis recognized/suspect: 2244 Recent Procedure: No On Antibiotic Therapy: No Respiratory Rate >20: No Heart Rate >90: No Temp<36 C (96.8 F) or >38.3 C: No SBP <90 or MAP <65 mmHG: No New Acute Mental Status Change: No Is the patient on CPAP, BIPAP,: No Vital Signs Date Time Temp Pulse Resp B/P (MAP) Pulse Ox O2 Delivery O2 Flow Rate FiO2 02/15/25 03:00 98.2 98 18 119/79 (92) 98.2 02/15/25 03:00 98 18 96 Room Air 02/14/25 22:43 98.0 99 16 127/79 97 98.0 Medications Medications Dose Ordered Sig/Astrid Route Start Time Stop Time Status Last Admin Dose Admin Acetaminophen 650 mg ONCE ONCE PO 02/15/25 02:30 02/15/25 02:31 DC 02/15/25 02:58 Departure 1 Departure Time of Disposition: 03:13 Impression: Primary Impression: Acute exacerbation of chronic low back pain Disposition: 01 HOME / SELF CARE / HOMELESS Condition: Stable Additional Instructions: ED DISCHARGE INSTRUCTIONS Instructions: Please read all instructions provided in this packet carefully. Although you have been discharged from the Emergency Department, this does not mean that you have a "clean bill of health". No definitive diagnosis for your symptoms has been made today. It is possible that you are in the process of developing a serious illness. This is why you must return to the ED without fail if any new or worsening symptoms (especially if your symptoms include chest pain, trouble breathing, abdominal pain, fever, headache, confusion, trouble seeing, or trouble walking) It is also very important that you see a primary care provider (PCP) within the next 3-5 days to follow up. If you are unable to get an appointment, return to the ED for re-evaluation. e-Prescriptions Lidocaine (LIDODERM 5% TOPICAL PATCH) 1 Patch Ph 1 PATCH TOP DAILY, #10 PATCH 1 Refill Prov: JUWAN LEW MD 02/15/25 Discharged With: Self Comments MDM: 34-year-old male presents with back pain most consistent with sciatica/lumbar radiculopathy. Differential diagnoses includes lumbago versus musculoskeletal spasm / strain versus sciatica. No back pain red flags on history or physical. Presentation not consistent with malignancy (lack of history of malignancy, lack of B symptoms), fracture (no trauma, no bony tenderness to palpation), cauda equina (no bowel or urinary incontinence/retention, no saddle anesthesia, no distal weakness), AAA, viscus perforation , pulmonary embolism, renal colic, pyelonephritis (afebrile, no CVAT, no urinary symptoms). Given the clinical picture, no indication for imaging at this time. Patient well-appearing, nontoxic. Advised prompt follow-up with PCP, return to the ED with any new, worsening or concerning symptoms. I reviewed the following notes from the pt's past medical encounters: Recent encounters for back pain The following tests were ordered, and results were reviewed by me: (See diagnostic results section) I discussed treatments and results with patient Decision regarding hospitalization or escalation of hospital level of care: Risks and benefits of admission for further treatment of patient's condition was considered however due to patient's stable condition patient will be discharged to follow up closely or return to care for worsening of condition or inability to follow up. Critical Care Note Critical Care Time?: No Stability Stability form required: No Heart Score Heart Score: Heart Score Response (Comments) Value History N/A 0 EKG N/A 0 Age N/A 0 Risk Factors N/A 0 Troponin N/A 0 Total 0 I personally scribed for JUWAN LEW MD ([email or web address]) on 02/15/25 at 03:02. Electronically submitted by Rashawn Garcia ([email or web address]). JUWAN LEW MD Feb 15, 2025 03:02
[2025-02-15] MEDS ORDERED: LIDO5DIS21 TOP (03:14)
== END 2025-02-15 04:29 | disposition home or self-care (01) ==
LOC: ER 22:41
DX: G89.29 Other chronic pain (principal); M54.50 Low back pain, unspecified; I10 Essential (primary) hypertension; Z88.6 Allergy status to analgesic agent; Z88.5 Allergy status to narcotic agent; Z79.899 Other long term (current) drug therapy

== ENCOUNTER 2025-02-22 22:54 | Emergency (ER) | payer MEDICAID ==
[~2025-02-22] VITALS: Ht 157.5 cm; Wt 76.9 kg
[~2025-02-22 22:54] MED LIST changes: +LIDO5DIS21 TOP
[2025-02-23 00:57] VITALS: BP 120/91; PULSE 100; RESP 16; TEMP 97.9; O2SAT 97
[2025-02-23] MEDS ORDERED: PRED20TA2 PO (01:03)
--- NOTE | 2025-02-23 01:03 | ED.PDOC ---
Back pain HPI HPI Comments 34-YEAR-OLD PRESENTS TO ER WITH COMPLAINTS OF BACK PAIN X2 DAYS. PATIENT WITH PAST MEDICAL HISTORY SIGNIFICANT FOR CHRONIC LOWER LUMBAR BACK PAIN REPORTS HE HAS BEEN EXPERIENCING WORSENING RIGHT LOWER LUMBAR BACK PAIN X2 DAYS S/P "WALKING IN THE COLD WEATHER". HE RATES HIS CURRENT PAIN A 9/10 TO RIGHT LOWER LUMBAR REGION WITH RADIATION DOWN RIGHT POSTERIOR LEG. PATIENT IS WELL-KNOWN TO CHECKING INTO ER FOR SIMILAR COMPLAINT AND OFTEN REQUESTS "[facility]" TO HELP HIS PAIN. PATIENT REPORTS HE HAS NOT YET FOLLOWED UP WITH PAIN MANAGEMENT AND PRESENTS TO ER AMBULATORY ON ARRIVAL, WITH STEADY GAIT, IN NO DISTRESS. DENIES FEVER, BODY ACHES, CHILLS, NIGHT SWEATS, NAUSEA/VOMITING, TRAUMA/FALLS/HEAVY L IFTING, NUMBNESS/TINGLING, EXTREMITY WEAKNESS, ABDOMINAL PAIN, CHEST PAIN, CHANGES IN URINATION/BM OR ANY FURTHER SYMPTOMS/COMPLAINTS Chief Complaint: Back Pain Time Seen by MD: 22:59 Primary Care Provider: UNKNOWN Reviewed Notes: Nurses Notes, Medications, Allergies Allergies: Coded Allergies: Cyclobenzaprine (Verified Allergy, Unknown, 11/16/24) Ibuprofen (Verified Allergy, Unknown, 11/16/24) Ketorolac Tromethamine (Verified Allergy, Unknown, 11/16/24) Tramadol (Verified Allergy, Unknown, 11/16/24) Home Meds Active Scripts Acetaminophen (Acetaminophen) 500 Mg Tab, 500 MG PO Q4HPRN, #30 TAB 0 Refills Prov:SUSIE MCKENZIE 02/23/25 Prednisone (Prednisone) 20 Mg Tab, 20 MG PO BID for 5 Days, #10 TAB 0 Refills Prov:SUSIE MCKENZIE 02/23/25 Lidocaine (LIDODERM 5% TOPICAL PATCH) 1 Patch Ph, 1 PATCH TOP DAILY, #10 PATCH 1 Refill Prov:JUWAN LEW MD 02/15/25 Acetaminophen (Acetaminophen) 500 Mg Tab, 500 MG PO Q4HPRN, #30 TAB 0 Refills Prov:SUSIE MCKENZIE 02/11/25 Prednisone (Prednisone) 10 Mg Tab, 10 MG PO DAILY for 5 Days, #5 MG Prov:RUPERT PERDOMO MD 02/05/25 Amoxicillin Trihydrate (Amoxicillin) 500 Mg Tab, 1 TAB PO BID for 10 Days, #20 TAB Prov:RUPERT PERDOMO MD 02/05/25 Methylprednisolone (Medrol Dosepak) 4 Mg Asng, 4 MG PO UD, #21 TAB 0 Refills UAD Prov:SUSIE MCKENZIE 01/26/25 Acetaminophen (Acetaminophen) 500 Mg Tab, 500 MG PO Q4HPRN, #30 TAB 0 Refills Prov:SUSIE MCKENZIE 01/26/25 Hydrocodone-Acetaminophen (Hydrocodone Bitartrate/AC 10-325 mg) 1 Tab Tab, 1 TAB PO BID PRN, #15 TAB Prov:CASSANDRA ALBA 01/18/25 Azithromycin (Zithromax Tri-Sang) 500 Mg Tab, 500 MG PO DAILY for 6 Days, #6 TAB Prov:RAVEN HANNA DO 01/13/25 Baclofen (Baclofen) 10 Mg Tab, 10 MG PO TID for 5 Days, #15 TAB 0 Refills Prov:BREA MITTAL 01/06/25 Acetaminophen (Acetaminophen Er) 650 Mg Tab, 650 MG PO TIDPRN PRN, #15 TAB Prov:JUWAN LEW MD 12/25/24 Information Source: Patient Mode of Arrival: Ambulatory Past Medical History PAST MEDICAL HISTORY: Asthma, High Lipids, HTN Past Medical History (Other): Chronic lumbar back pain Surgical History: Denies all surgeries Family History Family History: Unknown Social History Smoker: Non-Smoker Alcohol: Denies ETOH Use Drugs: Denies Drug Use Lives In: Homeless Constitutional: denies: chills, diaphoresis, fatigue, fever, malaise, sweats, weakness, others EENTM: denies: blurred vision, double vision, ear bleeding, ear discharge, ear drainage, ear pain, ear ringing, eye pain, eye redness, hearing loss, mouth pain, mouth swelling, nasal discharge, nose bleeding, nose congestion, nose pain, photophobia, tearing, throat pain, throat swelling, voice changes, others Respiratory: denies: cough, hemoptysis, orthopnea, SOB at rest, shortness of breath, SOB with excertion, stridor, wheezing, others Cardiovascular: denies: chest pain, dizzy spells, diaphoresis, Dyspnea on exertion, edema, irregular heart beat, left arm pain, lightheadedness, palpitations, PND, syncope, others Gastrointestinal: denies: abdomen distended, abdominal pain, blood streaked bowels, constipated, diarrhea, dysphagia, difficulty swallowing, hematemesis, melena, nausea, poor appetite, poor fluid intake, rectal bleeding, rectal pain, vomiting, others Genitourinary: denies: burning, dysuria, flank pain, frequency, hematuria, incontinence, penile discharge, penile sore, pain, testicle pain, testicle swelling, urgency, others Neurological: denies: dizziness, fainting, headache, left sided numbness, left sided weakness, numbness, paresthesia, pre-existing deficit, right sided numbness, right sided weakness, seizure, speech problems, tingling, tremors, weakness, others Musculoskeletal: reports: others (As stated in HPI) Integumetry: denies: bruises, change in color, change in hair/nails, dryness, laceration, lesions, lumps, rash, wounds, others Allergic/Immunocompromised: denies: Difficulty Healing, Frequent Infections, Hives, Itching, others Hematologic/Lymphatic: denies: anemia, blood clots, easy bleeding, easy bruising, swollen glands, others Endocrine: denies: excessive hunger, excessive sweating, excessive thirst, excessive urination, flushing, intolerance to cold, intolerance to heat, unexplained weight gain, unexplained weight loss, others Psychiatric: denies: anxiety, bipolar disorder, depression, hopeless, panic disorder, schizophrenia, sleepless, suicidal, others Physical Exam General Appearance: No Apparent Distress HEENT: PERRL/EOMI Neck: Full Range of Motion, Non-Tender, Normal Respiratory: Chest Non-Tender, Lungs Clear, No Accessory Muscle Use, No Resp iratory Distress, Normal Breath Sounds Cardiovascular: No Murmur, No Gallop, Regular Rate/Rhythm Breast Exam: Deferred Gastrointestinal: Non Tender, No Pulsatile Mass, Soft Genitalia: Deferred Pelvic: Deferred Rectal: Deferred Extremities: Normal capillary refill, Normal range of motion Musculoskeletal : Extremity Location: Back (TTP to right lower lumbar paraspinals noted. No skin changes noted. No bony tenderness to lumbar/thoracic spine noted. Steady gait noted) Neurologic: Alert, No Motor Deficits, Normal Affect, Normal Mood, No Sensory Deficits Cerebellar Function: Normal Reflexes: Normal Skin: Dry, Normal Color, Warm Peripheral Pulses: 2+ femoral (R), 2+ femoral (L), 2+ dorsalis pedis (R), 2+ dorsalis pedis (L), 2+ Radial (R), 2+ Radial (L), 2+ Brachial (R), 2+ Brachial (L) Lymphatic: No Adenopathy Was a procedure done? Was a procedure done?: No Sedation Sedation?: No Back Pain Differential Dx Differential Diagnosis: AAA, Fracture, Urinary Tract Infection, Urolithiasis X-Ray, Labs, Meds, VS Vital Signs Date Time Temp Pulse Resp B/P (MAP) Pulse Ox O2 Delivery O2 Flow Rate FiO2 02/22/25 22:55 97.9 100 16 120/91 97 97.9 Tylenol 650 mg p.o. ordered Patient in no distress during ER visit/prior to discharge Previous chart visits reviewed Advised to f/u with PCP in 1-2 days Patient verbalized understanding and agreeable with current plan of care Advised to return to ER immediately if symptoms worsen Time of 1ST Reevaluation: 00:44 Reevaluation 1ST: N/A Patient Education/Counseling: Diagnosis, Treatment, Prognosis, Need For Follow Up Family Education/Counseling: No Family Present SEPSIS Sepsis Screen Date sepsis recognized/suspect: Feb 22, 2025 Time Sepsis recognized/suspect: 2255 Recent Procedure: No On Antibiotic Therapy: No Respiratory Rate >20: No Heart Rate >90: Yes Temp<36 C (96.8 F) or >38.3 C: No SBP <90 or MAP <65 mmHG: No New Acute Mental Status Change: No Is the patient on CPAP, BIPAP,: No Physician Orders Acetaminophen Tablet (Tylenol Tablet) (02/23/25 01:15) Vital Signs Date Time Temp Pulse Resp B/P (MAP) Pulse Ox O2 Delivery O2 Flow Rate FiO2 02/22/25 22:55 97.9 100 16 120/91 97 97.9 Departure 1 Departure Time of Disposition: 01:01 Impression: Primary Impression: Acute exacerbation of chronic low back pain Disposition: 01 HOME / SELF CARE / HOMELESS Condition: Stable e-Prescriptions Acetaminophen (Acetaminophen) 500 Mg Tab 500 MG PO Q4HPRN, #30 TAB 0 Refills Prov: SUSIE MCKENZIE 02/23/25 Prednisone (Prednisone) 20 Mg Tab 20 MG PO BID for 5 Days, #10 TAB 0 Refills Prov: SUSIE MCKENZIE 02/23/25 Discharged With: Self Critical Care Note Critical Care Time?: No Stability Stability form required: No Heart Score Heart Score: Heart Score Response (Comments) Value History N/A 0 EKG N/A 0 Age N/A 0 Risk Factors N/A 0 Troponin N/A 0 Total 0 SUSIE MCKENZIE Feb 23, 2025 01:03
[2025-02-23] MEDS: ACETAMINOPHEN 325 MG TAB PO ONE (01:10)
== END 2025-02-23 00:59 | disposition home or self-care (01) ==
LOC: ER 22:54
DX: G89.29 Other chronic pain (principal); J45.909 Unspecified asthma, uncomplicated; I10 Essential (primary) hypertension; E78.5 Hyperlipidemia, unspecified; Z79.899 Other long term (current) drug therapy; Z88.6 Allergy status to analgesic agent; Z88.5 Allergy status to narcotic agent; Z79.52 Long term (current) use of systemic steroids; Z59.00 Homelessness unspecified